=== PATIENT | female | born 1955 | race Caucasian/White ===

== ENCOUNTER 2019-03-13 10:28 | Outpatient (REF) | payer BC, SELFPAY ==
[2019-03-13 21:46] LABS: Calculated LDL 118 mg/dL; Cholesterol 188 mg/dL (50-200); HDL Cholesterol 62 mg/dL (40-60); Triglyceride 40 mg/dL (30-150)
[2019-03-13 22:07] LABS: TSH 3.94 uIU/mL (0.36-3.74)
== END 2019-03-13 10:48 ==
LOC: NCHCN 10:28
PROVIDERS: PCP Nurse Practitioner Family; Visit Provider Nurse Practitioner Family
DX: E03.9 Hypothyroidism, unspecified (principal); Z13.220 Encounter for screening for lipoid disorders
CPT/HCPCS: 80061; 83721; 84443

== ENCOUNTER 2020-01-15 20:38 | Outpatient (REF) | payer BC, SELFPAY ==
[2020-01-15 20:44] LABS: ALT 25 U/L (14-59); AST 20 U/L (15-37); Albumin 3.8 g/dL (3.4-5.0); Alkaline Phosphatase 62 U/L (46-116); BUN 13 mg/dL (7-18); Bilirubin, Total 0.4 mg/dL (0.2-1.0); CREATININE 0.67 mg/dL (0.55-1.02); Chloride 104 mmol/L (98-107); Glucose 94 mg/dL (74-106); Potassium 3.8 mmol/L (3.5-5.1); Sodium 137 mmol/L (136-145); TSH (W/Ref FT4) 6.36 uIU/mL (0.36-3.74); Total Protein 7.4 g/dL (6.4-8.2)
[2020-01-15 21:08] LABS: FREE T4 1.01 ng/dL (0.76-1.46)
[2020-01-15 21:33] LABS: Abs Immature Grans 0.02 k/cumm (0.0-0.09); Absolute Basophil Count 0.02 k/cumm (0.0-0.2); Absolute Eosinophil Count 0.46 k/cumm (0.0-0.7); Absolute Lymphocyte Count 2.48 k/cumm (1.2-3.4); Absolute Monocyte Count 0.75 k/cumm (0.11-0.7); Basophils % 0.3; Eosinophils % 7.6; HCT 34.4 % (36.0-46.0); HGB 11.4 g/dL (12.0-15.5); Immature Grans % 0.3 %; Lymphocytes % 41.1; Mean Corp. HGB Concentration 33.1 g/dL (32.0-36.0); Mean Corpuscular Hemoglobin 29.4 pg (27.0-33.0); Mean Corpuscular Volume 88.7 fL (80-95); Mean Platelet Volume 10.2 fL (8.0-11.0); Monocytes % 12.4; Neutrophils % 38.3; Platelet Count 285 x1000/uL (130-400); RBC 3.88 m/cumm (4.00-5.20); RBC Distribution Width 12.8 % (11.7-14.6); White Blood Cell Count 6.03 k/cumm (4.4-10.8)
== END 2020-01-15 20:58 ==
LOC: NCHCN 20:38
PROVIDERS: PCP Nurse Practitioner Family; Visit Provider Physician Assistant
DX: E03.9 Hypothyroidism, unspecified (principal); L30.9 Dermatitis, unspecified
CPT/HCPCS: 80053; 84439; 84443; 85025

== ENCOUNTER → 2020-08-27 18:36 | Outpatient (REF) | payer BC, SELFPAY | LOC: NCHCN 18:36 | PROVIDERS: PCP Nurse Practitioner Family; Visit Provider Physician Assistant | DX: R30.0 Dysuria (principal); N39.0 Urinary tract infection, site not specified | CPT/HCPCS: 87086; 87480; 87510; 87660 ==

== ENCOUNTER 2021-08-25 10:59 | Outpatient (REF) | payer BC, SELFPAY ==
[2021-08-25 20:42] LABS: Anion Gap 8.5 mmol/L (3-11); BUN 15 mg/dL (7-18); CO2 28.5 mmol/L (21.0-32.0); CREATININE 0.5 mg/dL (0.55-1.02); Calcium 9.1 mg/dL (8.5-10.1); Chloride 106 mmol/L (98-107); Glucose 98 mg/dL (74-106); Potassium 4.1 mmol/L (3.5-5.1); Sodium 143 mmol/L (136-145); TSH (W/Ref FT4) 0.12 uIU/mL (0.36-3.74)
[2021-08-25 21:00] LABS: FREE T4 1.22 ng/dL (0.76-1.46)
== END 2021-08-25 11:00 | disposition home or self-care (01) ==
LOC: NCHCN 10:59
PROVIDERS: PCP Nurse Practitioner Family; Visit Provider Nurse Practitioner Family
DX: I10 Essential (primary) hypertension (principal); E03.9 Hypothyroidism, unspecified
CPT/HCPCS: 80048; 84439; 84443

== ENCOUNTER 2021-11-23 15:15 | Outpatient (REF) | payer BC, SELFPAY ==
[2021-11-25 13:17] LABS: COVID-19 RT-PCR UVMMC Result Negative (Negative)
== END 2021-11-23 15:16 | disposition home or self-care (01) ==
LOC: NCHCN 15:15
PROVIDERS: PCP Nurse Practitioner Family; Visit Provider Nurse Practitioner Family
DX: Z20.822 Contact with and (suspected) exposure to COVID-19 (principal)
CPT/HCPCS: U0003

== ENCOUNTER 2022-06-16 16:26 | Outpatient (REF) | payer BC, SELFPAY ==
[2022-06-16 19:54] LABS: TSH 2.58 uIU/mL (0.36-3.74)
== END 2022-06-16 16:27 | disposition home or self-care (01) ==
LOC: NCHCN 16:26
PROVIDERS: PCP Nurse Practitioner Family; Visit Provider Nurse Practitioner Family
DX: E03.9 Hypothyroidism, unspecified (principal)
CPT/HCPCS: 84443

== ENCOUNTER 2022-12-01 16:10 | Outpatient (REF) | payer MEDICARE, OTHER, SELFPAY ==
[2022-12-01 20:02] LABS: ALT 24 U/L (14-59); AST 22 U/L (15-37); Albumin 3.7 g/dL (3.4-5.0); Alkaline Phosphatase 62 U/L (46-116); Anion Gap 5.1 mmol/L (3-11); Bilirubin, Total 0.2 mg/dL (0.2-1.0); CO2 29.9 mmol/L (21.0-32.0); CREATININE 0.7 mg/dL (0.55-1.02); Calcium 9.4 mg/dL (8.5-10.1); Calculated LDL 105 mg/dL (<100); Chloride 104 mmol/L (98-107); Cholesterol 179 mg/dL (<200); Estimated GFR 95.32 (mL/min/1.73m2); Glucose 106 mg/dL (74-106); HDL Cholesterol 58 mg/dL (40-60); Potassium 4.5 mmol/L (3.5-5.1); Sodium 139 mmol/L (136-145); Total Protein 7.7 g/dL (6.4-8.2); Triglyceride 82 mg/dL (<150)
[2022-12-01 20:08] LABS: BUN 20 mg/dL (7-18)
== END 2022-12-01 16:11 | disposition home or self-care (01) ==
LOC: NCHCN 16:10
PROVIDERS: PCP Nurse Practitioner Family; Visit Provider Nurse Practitioner Family
DX: I10 Essential (primary) hypertension (principal)
CPT/HCPCS: 80053; 80061

== ENCOUNTER 2023-05-30 19:21 | Outpatient (REF) | payer MEDICARE, OTHER, SELFPAY | END 2023-05-30 19:22 | disposition home or self-care (01) | LOC: NCHCN 19:21 | PROVIDERS: PCP Nurse Practitioner Family; Visit Provider Nurse Practitioner Family | DX: E03.9 Hypothyroidism, unspecified (principal); R30.0 Dysuria | CPT/HCPCS: 87077; 84443; 87086; 87186 ==

== ENCOUNTER 2023-12-05 19:47 | Outpatient (REF) | payer MEDICARE, OTHER, SELFPAY ==
[2023-12-05 21:44] LABS: Anion Gap 9.2 mmol/L (3-11); BUN 17 mg/dL (7-18); CO2 25.8 mmol/L (21.0-32.0); CREATININE 0.7 mg/dL (0.55-1.02); Calcium 9.9 mg/dL (8.5-10.1); Chloride 106 mmol/L (98-107); Estimated GFR 94.73 (mL/min/1.73m2); Glucose 97 mg/dL (74-106); Potassium 3.9 mmol/L (3.5-5.1); Sodium 141 mmol/L (136-145); TSH (W/Ref FT4) 0.63 uIU/mL (0.36-3.74)
== END 2023-12-05 19:48 | disposition home or self-care (01) ==
LOC: NCHCN 19:47
PROVIDERS: PCP Nurse Practitioner Family; Visit Provider Nurse Practitioner Family
DX: I10 Essential (primary) hypertension (principal); E03.9 Hypothyroidism, unspecified
CPT/HCPCS: 80048; 84443

== ENCOUNTER 2024-05-27 17:12 | Outpatient (REF) | payer MEDICARE, OTHER, SELFPAY ==
--- NOTE | 2024-05-27 16:15 | PAPFT_PTH ---
PATIENT: Yashira Reynaga LOC: [facility]#:[id number] AGE/SX: 68/F ROOM: RE05/27/[address]: Christopher Tinoco : 1955 BED: DIS: 05/27/2024 SPEC #: [id number] RECD: 05/28/24 12:55 STATUS: RAMON REMegan #: [id number] HANSEL: 05/27/24 16:[address]: Christopher Tinoco DEPT: [facility] Cytology RECD BY: Alysia Cordero ENTERED: 05/28/24 12:55 SP TYPE: PAPFT OTHR DR: Rafaela Amaro Tissues: 1 - CX/ENDOCX FOR PAP SMEARS Procedures: PAP THIN PREP/[facility] Screening Comments: [id number] (UNSATISFACTORY FOR EVALUATION)
--- OUTSIDE RECORDS SUMMARY | 2024-05-27 17:14 | XMS_ITS | Continuity of Care Document ---
Author Organization [place] [facility] Address [address] [place] [address] Care Team Providers Care Blue Line Trimmer Name Role Phone CHARITY LEOS Primary Care Provider Assessment No assessment recorded. Plan of Treatment Reminders Order Date Submit Date Provider Last Modified By Organization Details Last Modified Time Details Appointments Acute 30 2023 04:00P M STEPHANIE FOLEY Not available Not available Not available Follow Up 2023 09:30A M CHARITY LEOS Not available Not available Not available Lab None recorded. Referral urogyneco logist referral - 68 yo woman has a very large stage III uterine prolapse, possibly with associate d cystocele . This enlarged when she had pneumonia and cough a few months ago. For the past month she has substanti al lower abdominal pain when she is standing and the prolapse is sagging more. She also has marked mucosal atrophy and irritatio n as expected. I took a Pap smear just because the tissue around the cervix is so irritated and somewhat friable. I could not palpate any adnexal abnormali ties and she had no adnexal tendernes s. We introduce d her to the options but she needs more informati on from you to make a decision. Last Pap smear I can see was 2017 and they have all been negative. She is . Prior cholecyst ectomy. Generally quite healthy. This summer she had a severe bout of celluliti s in the RLE took several months to completel y heal but that is now healed.I am having her use topical estrogen and emollient s to try to improve the health of the exposed mucosa somewhat pending her visit with you.Adriana e evaluate and manage as indicated 2023 024 [email or web address] [facility] Project Development Coordinator, [address], [place], [address], 05/27/2024 16:55:19 Procedures None recorded. Surgeries None recorded. Imaging None recorded. Medication Orders Premarin 0.625 mg/gram vaginal cream [address] [employer] [id number], [address], [place], [address], 05/27/2024 16:55:24 Patient TargetsNo targets recorded. Patient InstructionsNo instructions recorded. Reason for Referral I debrided extensive /ma cerated skin over R post calf resulting from cellulitis. Now daily dressing with medihoney and telfa under gauze. She made need some more scrubbing/debridement by Monday - and manage wound care please. She worsened on oral Abx last few days, is getting a few more days of IV abx. If necrotic areas become deeper I will refer for surgical debridement but I have no suspicion for a compartment syndrome at this time. Norman Wagoner MD Referring Physician: Stephanie Foley, Internal Medicine, Encounter Date: 04/24/2024 Fermin Atwood - See my email to prashant terry Referring Physician: Stephanie Foley, Internal Medicine, Encounter Date: 04/29/2024 Urogynecologist Referral for Third degree uterine prolapse 68 yo woman has a very large stage III uterine prolapse, possibly with associated cystocele. This enlarged when she had pneumonia and cough a few months ago. For the past month she has substantial lower abdominal pain when she is standing and the prolapse is sagging more. She also has marked mucosal atrophy and irritation as expected. I took a Pap smear just because the tissue around the cervix is so irritated and somewhat friable. I could not palpate any adnexal abnormalities and she had no adnexal tenderness. We introduced her to the options but she needs more information from you to make a decision.Last Pap smear I can see was 2016 and they have all been negative. She is . Prior cholecystectomy. Generally quite healthy. This summer she had a severe bout of cellulitis in the RLE took several months to completely heal but that is now healed.I am having her use topical estrogen and emollients to try to improve the health of the exposed mucosa somewhat pending her visit with you.Please evaluate and manage as indicated Referring Physician: Stephanie Foley, Internal Medicine, Encounter Date: 05/27/2024 Results Created Date Observation Date Name Description Value Unit Range Abnormal Flag Note LastModifiedBy Organization Detail LastModifiedTime 05/06/20 24 04/22/2021 imagi ng/di agnos tic resul t No observ ation record ed. [email or web address] Not Available 05/06 20:08:34 05/09/20 24 05/09/2024 xr chest 1 view PROCED URE INFORM ATION: Exam: XR Chest Exam date and time: 11:02 AM Age: 68 years old Clinic al indica tion: Cough TECHNI QUE: Imagin g protoc ol: Radiol ogic exam of the chest. Views: 1 view. COMPAR TIFFANIE: No releva nt prior studie s availa ble. FINDIN GS: Lungs: No consol idatio n. Pleura l spaces : No sizabl e pleura l effusi on or pneumo thorax . Heart/ Medias tinum: No cardio megaly . Bones/ joints : Unrema rkable . IMPRES THOM: No acute intrat horaci c dasha gs. Report signed by: Rhonda Leonardo On 2023 11:14: 23 [facility] [address], [place], [address], 05/09/2024 16:56:28 05/09/2005/09/2024 CT abdom en and pelvi s w/ contr ast no po ABNORM AL FINDIN G PROCED URE INFORM ATION: Exam: CT Abdome n And Pelvis With Contra st Exam date and time: 11:47 AM Age: 68 years old Clinic al indica tion: Lower abd pain, fever, vomiti ng TECHNI QUE: Imagin g protoc ol: Comput ed tomogr aphy of the abdome n and pelvis with contra st. Radiat ion optimi zation : All CT scans at this facili ty use at least one of these dose optimi zation techni ques: automa phani exposu re contro l; mA and/or kV adjust ment per patien t size (inclu dwayne target ed exams where dose is matche d to clinic al indica tion); or iterat tamika recons tructi on. Contra st materi al: OMNIPA QUE; Contra st volume : 90 ml; Contra st route: INTRAV ENOUS (IV); COMPAR TIFFANIE: CR XR CHEST 1 VW 024 11:02 AM FINDIN GS: Lungs: Patchy tree-i n-bud opacit ies in the bilate ral lower lobes with bronch ial wall thicke heber. Liver: Focal fat deposi tion along the falcif orm ligame nt. Gallbl adder and biliar y ducts: Status post cholec ystect stephen. Pancre as: No ductal dilati on. Spleen : Unrema rkable . Adrena l glands : Unrema rkable . Kidney s and ureter s: Mild left greate r than right hydrou retero nephro sis, likely second jennifer to disten ded bladde r. Stomac h and bowel: Coloni c divert iculos is withou t divert iculit is. No obstru ction. Fluid within the colon, compat ible with diarrh ea. Append ix: No eviden ce of append icitis . Intrap eriton eal space: No free air. No signif icant fluid collec tion. Vascul ature: Unrema rkable . Lymph nodes: No enlarg ed lymph nodes. Urinar y bladde r: Disten ded urinar y bladde r. Reprod uctive : Unrema rkable as visual ized. Bones/ joints : Unrema rkable . No acute fractu re. Soft tissue s: Unrema rkable . IMPRES THOM: 1. Patchy tree-i n-bud opacit ies in the bilate ral lower lobes with bronch ial wall thicke heber, concer heber for bronch itis/i nfecti on. 2. No acute findin gs in the abdome n or pelvis . Report signed by: Rhonda Leonardo On 2023 12:25: [address] [place] [address], [place], [address], 05/09/2024 16:56:31 Result Notes None recorded. Problems Name Problem SNOMED Code Status Onset Date Resolution Date Notes Provider Name and Address Organization Details Recorded Time Cholecys tectomy Completed 200311/25/2003 Not Available [facility] 3 05:17:13 Acute sinusiti s 20606540 Completed 201404/19/[address], [facility] [id number] [place] [address] 4 16:03:25 Acute sinusiti s 38908783 Completed 201512/02/2015 Problem Code: J01.90; Problem Code Type: ICD-10; MD Thong [address], [facility] [id number] [place] [address] 4 16:03:25 Increase d frequenc y of urinatio n 003910327 Completed 201511/03/2015 Problem Code: R35.0; Problem Code Type: ICD-10; Not Available [facility] 3 05:17:14 Urinary tract infectio us disease 95923466 Completed 201506/09/2016 Problem Code: N39.0; Problem Code Type: ICD-10; Not Available [facility] 3 05:17:14 Acute sinusiti s 64412463 Completed 201601/04/2017 Problem Code: J01.90; Problem Code Type: ICD-10; MD Thong [address], [facility] [id number] [place] [address] 4 16:03:25 Hypothyr oidism 34936282 Active 2007 Vandana Elizondo [facility] 4 16:33:26 Irritabl e bowel syndrome 93152419 [facility] 16:33:44 Simple goiter 056397591 [facility] 4 16:35:54 Gastroes ophageal reflux disease without esophagi tis 352477447 Active 201312/14/22 EGD Perez, gastric polyps STEPHANIE FOLEY MD [address], [place] [phone] [place] [address] 4 16:14:55 Pain of left shoulder joint 70779325056 320157 Completed 201605/05/2017 Problem Code: M25.512; Problem Code Type: ICD-10; Not Available [facility] 3 05:17:15 Screenin g for malignan t neoplasm of colon Completed 201605/30/2023 Problem Code: Z12.11; Problem Code Type: ICD-10; Removal Reason: 3 neg STEPHANIE FOLEY MD [address], [address] 4 16:14:27 Basal cell carcinom a of face 050543611 Completed 201604/19/2024 STEPHANIE FOLEY MD [address], [address] 4 16:03:33 Breast lump 02840931 Completed 201605/30/2023 Problem Code: N63; Problem Code Type: ICD-10; Not Available [facility] 4 05:37:29 Acute upper respirat ory infectio n 96536855 Completed 201608/15/2017 07/04/20 17 - Comments only - Dheeraj Davila PA-C - Followin g typical progress ion. Given hoarse voice most likely viral etiology . Symptoma tic care follow-u p if not improvin g. Reviewed expected course. Vital signs normal. Normal exam. 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 Amoxicil lizzie. F/U if not improvin g. Problem Code: J01.00; Problem Code Type: ICD-10; Not Available [facility] 3 05:17:15 Periapic al abscess 047396587 Completed 201701/16/2018 12/27/19 18 - Comments only - Rafaela Amaro PERCUSSION TUNER - Seen today by Dr. Ortiz (Dental) and she drained the abscess, flushed it and gave a prescrip tion for Chlorhex adine. Is schedule d for a tooth extracti on on 01/10/18, was not able to do today (patient had time constrai nts). I spoke directly with Dr. Ortiz, Amoxicil lizzie will cover infectio n for abscess. Problem Code: K04.7; Problem Code Type: ICD-10; Not Available [facility] 3 05:17:15 Screenin g for malignan t neoplasm of breast Completed 201803/13/2019 EZIO Valdivia [facility] 4 16:35:38 Adult health examinat ion Completed 201803/17/2021 03/17/20 21 - Comments only - Charity Leos PERCUSSION TUNER - Annual exam, mammogra m ordered. PAP not due, Yashira will follow up with [employer] for her prolapse d uterus just hasn't made an appointm ent yet. She got the Shingrix at the pharmacy . Declines COVID vaccine today but is consider ing having that done. I encourag ed vaccinat ion. Continue regular exercise . Problem Code: Z00.00; Problem Code Type: ICD-10; EZIO Valdivia - [facility] 4 16:29:47 Eczema 86279030 Completed 201912/05/2023 Dermatit s CHARITY LEOS, [employer]PER[employer]OR [address], [place], [address] , [facility] 4 10:53:24 Pain in thoracic spine 052537540 Completed 201905/26/2020 05/24/20 20 - Comments only - Rocío Suarez PA - Prescrip tion for Flexeril at bedtime. Recommen ded ibuprofe n 600 mg 3 times a day with food. Recommen ded heating pad and muscle rub. Problem Code: M54.9; Problem Code Type: ICD-10; Not Available [facility] 3 05:17:16 Uterovag inal prolapse 65734196 Active 2020 [facility] 4 16:36:03 Osteoart hritis 304009627 Active 2020 [facility] 4 16:33:51 Essentia l hyperten thom 00334634 Active 2021 [facility] 4 16:32:04 Exposure to communic able disease Completed 202111/23/2021 Exposure to COVID-19 coronavi bennett [facility] 4 16:32:45 Disorder of nasal sinus 8267659 Completed 202205/30/2023 12/02/19 23 - Comments only - Charity Leos PERCUSSION TUNER - will try adding Fluticas one to her azelasti ne to see if helps with sx, no sign of infectio n on exam today. Push fluids. RTC INI or feeling worse Not Available [facility] 4 05:37:29 Adult health examinat ion Completed 201612/26/2017 Problem Code: Z00.00; Problem Code Type: ICD-10; [facility], [facility] 4 16:29:47 Dysuria 60075043 Completed 201504/19/[address], [place], [address] , [facility] 4 16:03:38 Diarrhea 39172245 Completed 201403/07/2017 Problem Code: R19.7; Problem Code Type: ICD-10; Not Available [facility] 3 05:17:29 Irritabl e bowel syndrome 82721449 Completed 201312/08/2016 Vandana earl, [facility] 4 16:33:44 Hyperlip idemia screenin g Completed 201812/22/2020 Problem Code: Z13.220; Problem Code Type: ICD-10; Not Available [facility] 3 05:17:31 Urinary tract infectio us disease 77320444 Completed 201912/22/2020 Problem Code: N39.0; Problem Code Type: ICD-10; Not Available [facility] 3 05:17:31 Goiter 0756462 Completed 200312/08/2016 Not Available [facility] 3 05:17:33 Gastroes ophageal reflux disease 081634846 Completed 201312/08/2016 Not Available [facility] 3 05:17:35 Chronic sinusiti s 06075662 Completed 201512/26/2017 Problem Code: J32.9; Problem Code Type: ICD-10; Not Available [facility] 3 05:17:35 Raynaud' s disease 518931295 Active 2022 Vandana earl, [facility] 4 16:34:00 Seasonal allergy 568503322 Active [address], [place], [address] , [facility] 4 10:53:35 Cellulit is of right lower limb 82944334901 395564 Active [address], [place], [address] , [facility] 4 14:17:39 Upper respirat ory infectio n 85483451 Active [address], [facility] [address] , [facility] 4 16:00:30 Communit y acquired pneumoni a 565319139 Active [address], [facility] [address] , [facility] 4 17:25:36 Third degree uterine prolapse 43975353 Active [address], [facility] [address] , [facility] 4 16:49:54 Problem Notes None recorded. Medical Equipment None Reported. Allergies Allergen ID Allergen Name Allergen Category Reaction Reaction Severity Criticality Documentation Date Start Date Code Code System Note Provider Name and Address Organization Details Recorded Time 35314 Zithromax medicatio n rash moderate Not available 06/30/20232011 38512 4 RxNorm Vandana Caro [facility] 4 16:37:51 56967 sulfadiaz ine medicatio n other moderate Not available 06/30/20232001 50861 RxNorm No react ion enter ed Vandana Caro [facility] 4 16:37:37 08112 Cipro medicatio n insomnia severe Not available 06/30/20232020 87725 3 RxNorm Vandana Caro null, [facility] 4 16:36:36 54057 codeine medicatio n other moderate Not available 11/27/20232003 2670 RxNorm INTOL N/V Vandana Birminghameri null, [facility] 4 16:37:17 Medications Name Sig Start Date Stop Date Status Note LastModified by Organization Details LastModified Time cyclobenzap rine 10 mg tablet Take 1 tab by mouth at bedtime as needed 08/27 completed Not Available Not Available Not Available nystatin 100,000 unit/mL oral suspension SUSP QID 01/02 completed Not Available Not Available Not Available cetirizine 10 mg tablet TAKE ONE TABLET BY MOUTH AT BEDTIME 2020 active Not Available Not Available Not Avai lable ibuprofen 800 mg tablet take one tablet every eight hours as needed 2013 active Not Available Not Available Not Avai lable ibuprofen 200 mg capsule Take 4 capsules twice a day by oral route for 5 days. 2023 active Not Available Not Available Not Avai lable Flonase 50 mcg/DOSE nasal inhaler 2 SPRAY daily 02/04 completed Not Available Not Available Not Available lisinopril 20 mg tablet Take 1 tablet by mouth once a day for blood pressure 11/07 completed Not Available Not Available Not Available ondansetron HCl 4 mg tablet TAKE ONE TABLET BY MOUTH THREE TIMES A DAY active Not Available Not Available No t Available Synthroid 100 mcg tablet 1 TAB daily 11/10 completed Not Available Not Available Not Available Prilosec 20 mg capsule,del ayed release 1 TAB QD 02/05 completed Not Available Not Available Not Available Pyridium 100 mg tablet take 1-2 tabs three times daily as needed 05/19 completed Not Available Not Available Not Available Pyridium 200 mg tablet 1 TAB TID 09/02 completed Not Available Not Available Not Available Zithromax 250 mg tablet 2 TABS NOW 02/19 completed Not Available Not Available Not Available diphenoxyla te-atropine 2.5 mg-0.025 mg tablet 1 tab tid prn diarrhea 12/05 completed Not Available Not Available Not Available penicillin V potassium 500 mg tablet Take 1 tablet by mouth three times a day 12/27 completed Not Available Not Available Not Available amlodipine 2.5 mg tablet TAKE ONE TABLET BY MOUTH EVERY DAY 05/16 completed Not Available Not Available Not Available levofloxaci n 250 mg tablet Take 1 tablet by mouth once a day 06/08 completed Not Available Not Available Not Available amlodipine 5 mg tablet TAKE ONE TABLET BY MOUTH EVERY DAY active Not Available Not Available No t Available ciprofloxac in 500 mg tablet Take 1 tab by mouth twice daily 12/22 completed Not Available Not Available Not Available omeprazole 40 mg capsule,del ayed release TAKE ONE CAPSULE BY MOUTH EVERY DAY 04/19 completed Not Available Not Available Not Available triamcinolo ne acetonide 0.1 % topical cream Apply to affected area twice daily 05/19 completed Not Available Not Available Not Available levothyroxi ne 75 mcg tablet TAKE ONE TABLET BY MOUTH EVERY DAY, EXCEPT ON MONDAY AND SUNDAYS TAKE 1/2 TABLET DAILY active Not Available Not Available No t Available Bactroban 2 % topical cream cream three times daily 05/09 completed Not Available Not Available Not Available levothyroxi ne 88 mcg tablet Take 1 tab by mouth daily 2014 active Not Available Not Available Not Avai lable amoxicillin 875 mg tablet Take 1 tablet by mouth twice a day 12/03 completed Not Available Not Available Not Available levothyroxi ne 50 mcg tablet Take 1 tablet by mouth once a day 03/17 completed Not Available Not Available Not Available cephalexin 500 mg capsule TAKE ONE CAPSULE BY MOUTH FOUR TIMES A DAY FOR 10 DAYS 04/19 completed Not Available Not Available Not Available pantoprazol e 40 mg tablet,papito yed release TAKE ONE TABLET BY MOUTH EVERY DAY active Not Available Not Available No t Available nitrofurant oin macrocrysta l 100 mg capsule Take 1 tab by mouth twice daily 12/05 completed Not Available Not Available Not Available lisinopril 10 mg tablet TAKE ONE TABLET BY MOUTH EVERY DAY active Not Available Not Available No t Available Keflex 500 mg tablet 1 cap four times daily 04/25 completed Not Available Not Available Not Available ciprofloxac in 100 mg tablet Take 1 tab by mouth twice daily 09/01 completed Not Available Not Available Not Available azelastine 137 mcg (0.1 %) nasal spray [place] 1-2 spray into both nostrils once a day as needed 2021 active Not Available Not Available Not Avai lable ibuprofen 600 mg tablet Take 1 tablet by mouth three times a day as needed 12/04 completed Not Available Not Available Not Available albuterol sulfate HFA 90 mcg/actuati on aerosol inhaler INHALE TWO PUFFS BY MOUTH EVERY 4 TO 6 HOURS NEEDED 2023 active Not Available Not Available Not Avai lable Cipro 250 mg tablet 1 TAB BID 09/08 completed Not Available Not Available Not Available cefdinir 300 mg capsule TAKE ONE CAPSULE BY MOUTH EVERY 12 HOURS 05/06 completed Not Available Not Available Not Available fluticasone propionate 50 mcg/actuati on nasal spray,suspe nsion INSTILL 2 SPRAYS INTO BOTH NOSTRILS ONCE DAILY 12/04 completed Not Available Not Available Not Available doxycycline hyclate 100 mg tablet TAKE ONE TABLET BY MOUTH TWICE A DAY FOR 10 DAYS 04/19 completed Not Available Not Available Not Available amoxicillin 875 mg-potassiu m clavulanate 125 mg tablet TAKE ONE TABLET BY MOUTH EVERY 12 HOURS FOR 10 DAYS 05/27 completed Not Available Not Available Not Available Multivitami n With Minerals tablet 1 tablet once a day 2018 active Not Available Not Available Not Avai lable Premarin 0.625 mg/gram vaginal cream Apply 1 g to exposed mucosal surface daily for 2 weeks and then 2 days/week . 2023 active Not Available Not Available Not Avai lable nitrofurant oin monohydrate /macrocryst als 100 mg capsule Take 1 capsule by mouth twice a day 06/04 completed Not Available Not Available Not Available multivitami n 1 tab a day 2018 active Not Available Not Available Not Avai lable omeprazole 20 mg tablet,papito yed release Take 1 by mouth BID 2013 active Not Available Not Available Not Avai lable Culturelle Digestive [facility] 10 billion cell-200 mg sprinkle capsule Take 1capsule by mouth daily 2010 active Not Available Not Available Not Avai lable Vitals Date Recorded Body height Body mass index (BMI) Body weight Body temperature Respiratory rate Oxygen saturation Oxygen saturation in Arterial blood by Pulse oximetry Heart rate Systolic blood pressure Diastolic blood pressure Provider Name and Address Organization Details Last Updated DateTime 166.37 cm 22.8 kg/m2 91250.4 4 g 96.8 [degF] 18 /min 99 % 99 % 60 /min 110 mm[Hg] 60 mm[Hg] BERE REDDYLORETTA WALSH [facility] 15:55:44 Social History Question Answer Notes LastModified by Organizat ion Details LastModified Time Tobacco Smoking Status Never Smoker BEREJUSTIN MEZA LPN null, [facility] 12/05/2023 10:36:31 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 05/27/2024 Information not available 05/27/2024 Has Tobacco Cessation Counseling Been Provided? No Information not available 05/16/2024 Do You Or Have You Ever Used Any Other Forms Of Tobacco Or Nicotine? No Information not available 12/05/2023 Sex: Female Functional Status None recorded. Mental Status None recorded. Family History Relationship Description Onset Age of this Age Resolved Age Notes LastModified by Organization Details LastModified Time Mother Family history of Hypertension [email or web address] Not available 05/2023 03:54:45 Mother Family history of hyperthyroid ism [email or web address] Not available 2022 03:54:46 Notes:*Problem: No known fam darline history of CAD, CVA, breast cancer or colon cancer Medical History No medical history recorded. Gynecological HistoryNo gynecological history recorded. Obstetrics History GPAL:G 0 P 0 0 0 0 Immunizations Vaccine Type Date Status Provider Name and Address Organization Details Recorded Time Tdap 05/27/2024 completed MD Thong [address], [place], [address], [facility] 05/27/2024 16:48:00 MMR 03/13/2019 completed Not Available [facility] 06:04:52 Tdap 05/02/2014 completed Not Available [facility] 06:04:52 Influenza, split virus, trivalent, preservative 06/13/2016 completed Not Available [facility] 06/30/2023 06:04:52 Influenza, split virus, quadrivalent, PF 06/24/2018 completed Not Available [facility] 06/30/2023 06:04:52 Influenza, MDCK, trivalent, PF 06/03/2015 completed Not Available [facility] 06/30/2023 06:04:52 influenza, unspecified formulation 06/03/2020 completed Not Available [facility] 06/30/2023 06:04:52 influenza, unspecified formulation 06/20/2019 completed Not Available [facility] 06/30/2023 06:04:53 influenza, unspecified formulation 07/11/2023 completed Duane Martinez RN [facility], [facility] 12/04/2023 14:24:56 Past Encounters Encounter ID Performer Location Encounter Start Date Encounter Closed Date Diagnosis/Indication Diagnosis SNOMED-CT Code Diagnosis ICD10 Code [id number] STEPHANIE FOLEY MD [address] [address] 04/29/2024 14:46:21 04/29/2024 15:27:54 Cellulitis of right lower limb [id number] L03.342 [id number] STEPHANIE FOLEY MD [address] [address] 05/06/2024 14:47:54 05/06/2024 16:40:25 Cellulitis of right lower limb [id number] L03.115 Upper resp iratory infection 73547076 J06.9 [id number] ROCÍO SUAREZ PA-C [address] [address] 05/16/2024 15:49:32 05/16/2024 16:53:23 Cough 94674122 R05.9 [id number] STEPHANIE FOLEY MD [address] [address] 05/20/2024 15:48:58 05/20/2024 17:04:49 Cellulitis of right lower limb 4573071461 4648638 L03.115 Community acquired pneumonia 126092044 J18.9 [id number] STEPHANIE FOLEY MD [facility] [address] [place] [address] 05/27/2024 15:50:06 05/27/2024 16:50:46 Active or passive immunization 437677413 Z23 Third degr ee uterine prolapse 73473395 N81.3 Health Concerns Section Related Observation LastModified by Organization Detai ls LastModified Time None Recorded Concern Status LastModified by Organization Details LastModified Time None Recorded Payers Encounter Date Sequence Insurance Name Policy Number Policy Luna Covered Member ID Luna Member ID Guarantor Name 05/27/2024 1 [place] [employer] Yashira Reynaga [id number] Yashira Reynaga 05/27/2024 2 [facility] () Yashira Reynaga [id number] Yashira Reynaga Notes Date Note Type Note Provider Name and Address Organization Details Recorded Time 05/27/2024 text/html HPI Notes: 68-year-old woman here because of increased lower abdominal pain for several weeks duration, associated with increased size of a longstanding uterine prolapse. 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 It had not bothered her much until more recently. She had pneumonia a few months ago and during that time she had increased coughing which led to a marked increase in the size of the prolapsed area. Surprisingly she has never noticed mucosal irritation, but in the past month she has noted bilateral lower abdominal pain whenever she stands and the prolapse sags more. She also has to manually move the prolapse aside in order to void. She has not had dysuria or hematuria. She had prolonged antibiotics for severe lower extremity cellulitis over the past 2 months, has now been off them for about a month. She had diarrhea while on Augmentin but that has cleared up completely. She was not having this lower abdominal pain back when she was having the diarrhea. She has no nausea or epigastric pain, is able to eat normally. No recent sexual activity. MD [address], [place], [address], [facility]. 05/27/2024 16:55:31 OBGyn Episode No OBEpisode recorded.
--- OUTSIDE RECORDS SUMMARY | 2024-05-27 17:14 | XMS_ITS | Continuity of Care Document ---
Author Organization [facility] Address [address] [place] [address] Care Team Providers Care Semiconductor Packages Sealer Name Role Phone CHARITY LEOS Primary Care Provider [phone] Assessment No assessment recorded. Plan of Treatment Reminders Order Date Submit Date Provider Last Modified By Organization Details Last Modified Time Details Appointments Acute 30 2023 04:00P M STEPHANIE FOLEY Not available Not available Not available Follow Up 2023 09:30A M CHARITY LEOS Not available Not available Not available Lab None recorded . Referral None recorded . Procedures None recorded . Surgeries None recorded . Imaging None recorded . Medication Orders None recorded . Patient TargetsNo targets recorded. Patient InstructionsNo instructions [...] decision.Last Pap smear I can see was 2017 [...] record ed. [email or web address] Not Available 05/06 20:08:34 05/09/2005/09/2024 xr chest 1 view PROCED URE INFORM ATION: Exam: XR Chest Exam date and time: 024 11:02 AM Age: 68 years old Clinic [...] by: Rhonda Leonardo On 2023 11:14: 23 [facility] [address], [place], [address], 05/09/2024 16:56:28 05/09/20 24 05/09/2024 CT abdom en and pelvi s w/ [...] by: Rhonda Leonardo On 2023 12:25: 09 INTERFACE [facility] [address], [place], [address], 05/09/2024 16:56:31 Result Notes None recorded. Problems Name Problem SNOMED Code Status Onset Date Resolution Date Notes Provider Name and Address Organization Details Recorded Time Cholecys tectomy Completed 200311/25/2003 Not Available On license of [facility] 3 05:17:13 Acute sinusiti s 77847653 Completed 201404/19/[address], [place], [address] , [facility] 4 16:03:25 Acute sinusiti s 58363571 Completed 201512/02/2015 Problem Code: J01.90; Problem Code Type: ICD-10; MD [address]ong [address], [place], [address] , [facility] 4 16:03:25 Increase d frequenc y of urinatio n 346167674 Completed 201511/03/2015 Problem Code: R35.0; Problem Code Type: ICD-10; Not Available [facility] 3 05:17:14 Urinary tract infectio us disease 65722267 Completed 201506/09/2016 Problem Code: N39.0; Problem Code Type: ICD-10; Not Available On license of [facility] 3 05:17:14 Acute sinusiti s 99728440 Completed 201601/04/2017 Problem Code: J01.90; Problem Code Type: ICD-10; MD Thong [address], [place], [address] , [facility] 4 16:03:25 Hypothyr oidism 55696782 Active 2007 [facility] 4 16:33:26 Irritabl e bowel syndrome 47909156 Active nl colonosc opy [facility] 4 16:33:44 Simple goiter 555044500 Active 2003 [facility] 4 16:35:54 Gastroes ophageal reflux disease without esophagi tis 105282856 Active 201312/14/22 EGD Perez, gastric polyps MD Thong [address], [facility] [address] , [facility] 4 16:14:55 Pain of left shoulder joint 90824920945 852028 Completed 201605/05/2017 Problem Code: M25.512; Problem Code Type: ICD-10; Not Available [facility] 3 05:17:15 Screenin g for malignan t neoplasm of colon Completed 201605/30/2023 Problem Code: Z12.11; Problem Code Type: ICD-10; Removal Reason: 3 neg MD [address], [place], [address] , [facility] 4 16:14:27 Basal cell carcinom a of face 201419417 Completed 201604/19/[address], [place], [address] , [facility] 4 16:03:33 Breast lump 78164994 Completed 201605/30/2023 Problem Code: N63; Problem Code Type: ICD-10; Not Available [facility] 4 05:37:29 Acute upper respirat ory infectio n 61005491 Completed 201608/15/2017 07/04/20 17 - Comments only - Dheeraj Davila PA-C - Followin g typical progress ion. Given hoarse voice most likely viral etiology . Symptoma tic care follow-u p if not improvin g. Reviewed expected course. Vital signs normal. Normal exam. 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 Amoxicil lizzie. F/U if not imprologan g. Problem Code: J01.00; Problem Code Type: ICD-10; Not Available On license of [facility] 3 05:17:15 Periapic al abscess 573417935 Completed 201701/16/2018 12/27/19 18 - Comments only - Rafaela Amaro FASHION ARTIST - Seen today by Dr. Ortiz (Dental) [...] K04.7; Problem Code Type: ICD-10; Not Available On license of [facility] 3 05:17:15 Screenin g for malignan t neoplasm of breast Completed 201803/13/2019 Vandana earl [facility] 4 16:35:38 Adult health examinat ion Completed 201803/17/2021 03/17/20 21 - Comments only - Charity Leos FASHION ARTIST - Annual exam, mammogra m ordered. 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 She got the Shingrix at the pharmacy . Declines COVID vaccine today but is consider ing having that done. I encourag ed vaccinat ion. Continue regular exercise . Problem Code: Z00.00; Problem Code Type: ICD-10; [facility] 4 16:29:47 Eczema 01800072 Completed 201912/05/2023 Dermatit s CHARITY LEOS, CL[employer] [address], [place], [address] , [facility] 4 10:53:24 Pain in thoracic spine 751966071 Completed 201905/26/2020 05/24/20 20 - Comments only - Rocío PAEZ - Prescrip tion for Flexeril at bedtime. Recommen ded ibuprofe n 600 mg 3 times a day with food. Recommen ded heating pad and muscle rub. Problem Code: M54.9; Problem Code Type: ICD-10; Not Available [facility] 3 05:17:16 Uterovag inal prolapse 86375684 Active 2020 [facility] 4 16:36:03 Osteoart hritis 497442133 Active 2020 [facility] 4 16:33:51 Essentia l hyperten thom 70352737 Active 2021 [facility] 4 16:32:04 Exposure to communic able disease Completed 202111/23/2021 Exposure to COVID-19 coronavi bennett [facility] 4 16:32:45 Disorder of nasal sinus 1062577 Completed 202205/30/2023 12/02/19 23 - Comments only - Charity Leos FASHION ARTIST - will try adding Fluticas one to her azelasti ne to see if helps with sx, no sign of infectio n on exam today. Push fluids. RTC INI or feeling worse Not Available On license of [facility] 4 05:37:29 Adult health examinat ion Completed 201612/26/2017 Problem Code: Z00.00; Problem Code Type: ICD-10; Vandana earl, [facility] 4 16:29:47 Dysuria 82589380 Completed 201504/19/2024 STEPHANIE FOLEY MD [address], [place], [address] [facility] 4 16:03:38 Diarrhea 44599957 Completed 201403/07/2017 Problem Code: R19.7; Problem Code Type: ICD-10; Not Available On license of [facility] 3 05:17:29 Irritabl e bowel syndrome 15842155 Completed 201312/08/2016 Vandana earl, [facility] 4 16:33:44 Hyperlip idemia screenin g Completed 201812/22/2020 Problem Code: Z13.220; Problem Code Type: ICD-10; Not Available On license of [facility] 3 05:17:31 Urinary tract infectio us disease 35551368 Completed 201912/22/2020 Problem Code: N39.0; Problem Code Type: ICD-10; Not Available [facility] 3 05:17:31 Goiter 2977959 Completed 200312/08/2016 Not Available [facility] 3 05:17:33 Gastroes ophageal reflux disease 267768832 Completed 201312/08/2016 Not Available [facility] 3 05:17:35 Chronic sinusiti s 73015703 Completed 201512/26/2017 Problem Code: J32.9; Problem Code Type: ICD-10; Not Available [facility] 3 05:17:35 Raynaud' s disease 502556573 Active 2022 Vandana earl, [facility] 4 16:34:00 Seasonal allergy 935981588 Active 2023 FABIANO ESPINOZA [address], [place], [place], [address] [place] [address] , [facility] 4 10:53:35 Cellulit is of right lower limb 06791693084 150875 Active [address], [place] [address] , [facility] 4 14:17:39 Upper respirat ory infectio n 93649311 Active [address], [place] [address] , [facility] 4 16:00:30 Communit y acquired pneumoni a 589391242 Active [address], [place] [address] , [facility] 4 17:25:36 Third degree uterine prolapse 11065741 Active [address], [place] [address] , [facility] 16:49:54 Problem Notes None recorded. Medical Equipment None Reported. Allergies Allergen ID Allergen Name Allergen Category Reaction Reaction Severity Criticality Documentation Date Start Date Code Code System Note Provider Name and Address Organization Details Recorded Time 11769 Zithromax medicatio n rash moderate Not available 06/30/202320117 4 [facility] 4 16:37:51 57607 sulfadiaz ine medicatio n other moderate Not available 06/30/20232001 40146 RxNorm No react ion enter ed Vandana earl, [facility] 4 16:37:37 92628 Cipro medicatio n insomnia severe Not available 06/30/2023202056 3 RxNorm Vandana Elizondo [facility] 4 16:36:36 51572 codeine medicatio n other moderate Not available 11/27/20232003 2670 RxNorm INTOL N/V Vandana Elizondo [facility] 4 16:37:17 Medications Name Sig Start Date [...] azelastine 137 mcg (0.1 %) nasal spray Cascade 1-2 spray into both nostrils once a [...] Not Available Not Available Not Avai lable [facility] 10 billion cell-200 mg sprinkle capsule Take 1capsule by mouth daily 2010 active Not Available Not Available Not Avai lable Vitals Date Recorded Body height Oxygen saturation Oxygen saturation in Arterial blood by Pulse oximetry Heart rate Body mass index (BMI) Body weight Body temperature Systolic blood pressure Diastolic blood pressure Provider Name and Address Organization Details Last Updated DateTime 4 166.37 cm 96 % 96 % 86 /min 23.3 kg/m2 13493.1 2 g 98.3 [degF] 122 mm[Hg] 60 mm[Hg] Duane Martinez RN [facility] 16:00:29 Social History Question Answer Notes LastModified by Organizat ion Details LastModified Time Tobacco Smoking Status Never Smoker BERE MEZA LPN null, [facility] 12/05/2023 10:36:31 What Is Your Occupation? Retired [...] LastModified Time Mother Family history of Hypertension paulino. Not available 05/2023 03:54:45 Mother Family history of hyperthyroid ism paulino. Not available 2022 03:54:46 Notes:*Problem: No known fam darline history of CAD, CVA, breast cancer or colon cancer Medical History No medical history recorded. Gynecological HistoryNo gynecological history recorded. Obstetrics History GPAL:G 0 P 0 0 0 0 Immunizations Vaccine Type Date Status Provider Name and Address Organization Details Recorded Time Tdap 05/27/2024 completed MD Thong [address], [place], [address], [facility] 05/27/2024 16:48:00 MMR 03/13/2019 completed Not Available On license of [facility] 06:04:52 Tdap 05/02/2014 completed Not Available On license of [facility] 06:04:52 Influenza, split virus, trivalent, preservative 06/13/2016 completed Not Available [facility] 06/30/2023 06:04:52 Influenza, split virus, quadrivalent, PF 06/24/2018 completed Not Available On license of [facility] 06/30/2023 06:04:52 Influenza, MDCK, trivalent, PF 06/03/2015 completed Not Available On license of [facility] 06/30/2023 06:04:52 influenza, unspecified formulation 06/03/2020 completed Not Available On license of [facility] 06/30/2023 06:04:52 influenza, unspecified formulation 06/20/2019 completed Not Available On license of [facility] 06/30/2023 06:04:53 influenza, unspecified formulation 07/11/2023 completed Duane Martinez RN [facility], [facility] 12/04/2023 14:24:56 Past Encounters Encounter ID Performer Location Encounter Start Date Encounter Closed Date Diagnosis/Indication Diagnosis SNOMED-CT Code Diagnosis ICD10 Code [id number] STEPHANIE FOLEY MD [address] [address] 04/19/2024 15:56:50 04/19/2024 16:38:44 Cellulitis of right lower limb 4810924986 3973616 L03.666 [id number] STEPHANIE FOLEY MD [address] [address] 04/24/2024 13:18:07 04/24/2024 14:35:47 Cellulitis of right lower limb 6692191316 9994938 L03.911 [id number] STEPHANIE FOLEY MD [address] [address] 04/29/2024 14:46:21 04/29/2024 15:27:54 Cellulitis of right lower limb 0698609660 8590628 L03.841 [id number] STEPHANIE FOLEY MD [address] [address] 05/06/2024 14:47:54 05/06/2024 16:40:25 Cellulitis of right lower limb 1207605002 6574680 L03.115 Upper resp iratory infection 74527558 J06.9 [id number] ROCÍO SUAREZ PA-C [address] [address] 05/16/2024 15:49:32 05/16/2024 16:53:23 Cough 21672018 R05.9 [id number] STEPHANIE FOLEY MD [address] [address] 05/20/2024 15:48:58 05/20/2024 17:04:49 Cellulitis of right lower limb 0113624012 9134504 L03.115 Community acquired pneumonia 778172420 J18.9 Health Concerns Section Related Observation LastModified by Organization Detai ls LastModified Time None Recorded Concern Status LastModified by Organization Details LastModified Time None Recorded Payers Encounter Date Sequence Insurance Name Policy Number Policy Luna Covered Member ID Luna Member ID Guarantor Name 05/20/2024 1 [place] [employer] Yashira Reynaga [id number] Yashira Reynaga 05/20/2024 2 [facility] () Yashira Reynaga [id number] Yashira Reynaga Notes Date Note Type Note Provider Name and Address Organization Details Recorded Time 05/20/2024 text/html HPI Notes: Follow-up cellulitis The widespread areas of shallow ulceration finally healed up completely last week. Pain over the right calf also improved. No new areas of erythema or tenderness. Unfortunately last week her respiratory symptoms worsen, she was seen 5 days ago and given Augmentin for presumptive pneumonia. She does not have fever, chills or severe dyspnea but she does have wet cough, fatigue, mild dyspnea. She has been able to eat and drink normally, no vomiting . Her C. difficile studies were negative but she continues to have some stool frequency and urgency. However the stools are starting to form up now. No blood. No severe abdominal pain. MD Thong [address], [place], [address], [facility]. 05/20/2024 17:27:20 OBGyn Episode No OBEpisode recorded.
--- OUTSIDE RECORDS SUMMARY | 2024-05-27 17:15 | XMS_ITS | Encounter Summary ---
Author Organization [facility] Address [address] [place] [address] Care Team Providers Care Binder Sorter Name Role Phone Unavailable Primary Care Provider Unavailabl e Encounter Details Date Type Department Care Team (Late st Contact Info) Description 07/08/2011 Results Only [facility] [phone] Refugio Avina PA-C [address] [place] [address] Social History Tobacco Use Types Packs/Day Years Used Date Smoking Tobacco: Never Assessed Sex and Gender Information Value Date Recorded Sex Assigned at Not on file Gender Identity Not on file Sexual Orientation Not on file documented as of this encounter Plan of Treatment Not on file documented as of this encounter Procedures Procedure Name Priority Date/Time Associated Diagnosis Comments PAP TEST- RESULT ONLY Routine 07/08/2011 0:00 EST documented in this encounter Results * PAP TEST- RESULT ONLY (07/08/2011 0:00 EST) Pathology Report: CYTOPATHOLOGY REPORT Reports generated via electronic interface contain original data; however they are lacking the format of the original report. Caution should be taken when reading/interpreti ng unformatted reports. Name: ? KALINA ROJAS ? Accession #: ? [id number] : ? 1955 (Age: 55) ??F ?Collect Date: ? 07/08/2011 Location: ? [facility] ? Receive Date: ? 07/12/2011 Provider: ?REFUGIO PAEZ Copy to: ? Specimen/Source: ?Pap Test, Cervix, ThinPrep Imaging System with manual evaluation Last Menstrual Period: ? SPECIMEN ADEQUACY ? Satisfactory for Evaluation - transformation zone component absent GENERAL CATEGORIZATION ? Negative for Intraepithelial Lesion or Malignancy ? Document reviewed and electronically signed by: ? MED Escobar(ASCP) ? Report Date: ??07/18/2011 13:55 End of Report LAKISHA ARROYO 07/08/2011 07/12/2011 Refugio Avina PA-C PATHOLOGY ORDERABLES LAKISHA ARROYO [address] [place] [address] documented in this encounter Visit Diagnoses Not on filedocumented in this encounter
--- OUTSIDE RECORDS SUMMARY | 2024-05-27 17:15 | XMS_ITS | Encounter Summary ---
Author Organization [facility] Address [address] [place] [address] Care Team Providers Care Outfitter Cabin Name Role Phone Christopher Tinoco MD Primary Care Provider [phone] Encounter Details Date Type Department Care Team (Late st Contact Info) Description 12/14/2022 Lab Requisition [facility] Pathology & Laboratory Medicine - Main [address] [address] Hair Perez MD [address] [place] [phone] Encounter for screening for malignant neoplasm of colon Social History Tobacco Use Types Packs/Day Years Used Date Smoking Tobacco: Never Assessed Interpersonal Safety Answer Date Record ed Physically Hurt Never 03/22/2020 Verbally Threaten Not on file 03/22/2020 Sex and Gender Information Value Date Recorded Sex Assigned at Not on file Gender Identity Not on file Sexual Orientation Not on file documented as of this encounter Plan of Treatment Not on file documented as of this encounter Procedures Procedure Name Priority Date/Time Associated Diagnosis Comments SURGICAL PATHOLOGY Today 12/14/2022 13 :31 EDT documented in this encounter Results * SURGICAL PATHOLOGY (12/14/2022 13:31 EDT) Note to Patient The following pathology results have been interpreted by your pathologist and may be available to you before your health provider has had the opportunity to review them. Please allow time for your provider to receive these results and explore management options, if applicable. 12/19/2022 13:22 EDT [facility] Final Diagnosis A. STOMACH, ANTRUM, BIOPSIES: - Antral mucosa with mild chronic gastritis. - Stain for Helicobacter pylori like organisms (H pylori (Rabbit Monoclonal (SP48), Talent)) negative. See comment. B. STOMACH, GASTRIC POLYP, BIOPSY: - Fundic gland polyp. C. GASTROESOPHAGEAL JUNCTION, BIOPSIES: - Squamous and gastric type glandular mucosa with features of reflux. - No intestinal metaplasia or dysplasia. 12/19/2022 13:22 [facility] Diagnosis Comment NOTE: One or more of the reagents used in immunoperoxidase testing in this case may not have been cleared or approved by the U.S. Food and Drug Administration (FDA). The FDA has determined that such clearance or approval is not necessary. These tests are used for clinical purposes. They should not be regarded as investigational or for research. These reagents' performance characteristics have been determined by [facility] and/or by the referring laboratory. The positive and negative controls worked appropriately. If immunoperoxidase staining has been performed on alcohol fixed cytology specimens, which has not been fully validated, the assays should be interpreted with caution and correlated with clinical data. This laboratory is certified under the Clinical Laboratory Improvement Amendments of 1988 (CLIA-88) as qualified to perform high complexity clinical laboratory testing.? 12/19/2022 13:22 [facility] Attestation By the signature below, the attending physician certifies that they have 1) personally conducted a gross and/or microscopic examination of the described specimen(s), and/or personally interpreted the results of laboratory testing of the described specimen(s), and 2) personally rendered or confirmed the above diagnosis. 12/19/2022 13:22 [facility] at 1322 Clinical History Reflux, screening; gastritis, esophagitis, diverticulosis 12/19/2022 13:22 [facility] Gross Description A. Received in formalin labelled with proper patient identification (initials B, D) and antrum biopsy are 2 fragments of doran soft tissue (0.3 x 0.2 x 0.2 cm and 0.5 x 0.3 x 0.2 cm). The specimen is entirely submitted in A1. B. Received in formalin labelled with proper patient identification (initials B, D) and gastric polyp are 2 fragments of doran soft tissue (each averaging 0.2 x 0.3 x 0.2 cm). The specimen is entirely submitted in B1. C. Received in formalin labelled with proper patient identification (initials B, D) and GE junction are 4 fragments of doran soft tissue (ranging from 0.2 cm to 0.3 cm in greatest dimension). The specimen is entirely submitted in C1. JEANNINE GALINDO(ASCP) 12/15/2022 11:45 12/19/2022 13:22 EDT [facility] Performing Lab [facility] 13:22 EDT [facility] Scanned Images 12/19/2022 13:22 EDT [facility] Tissue ENTIRE ESOPHAGUS / Unknown 12/14/2022 13:31 EDT 12/14/2022 22:26 EDT Tissue specimen (specimen) SPECIMEN FROM STOMACH OBTAINED BY TOTAL GASTRECTOMY / Unknown 12/14/2022 13:31 EDT 12/14/2022 22:26 EDT Tissue specimen (specimen) ESOPHAGEAL STRUCTURE / Unknown 12/14/2022 13:31 EDT 12/14/2022 22:26 EDT Hair Perez MD PATHOLOGY ORDERABLES [facility] [address] [place] [address] documented in this encounter Visit Diagnoses Diagnosis Encounter for screening for malignant neoplasm of colon Special screening for malignant neoplasms, colon documented in this encounter Care Teams Outfitter Cabin Relationship Specialty Start Date End Date Christopher Tinoco MD [address] [place] [id number] PCP - General Internal Medicine - Primary Care 11/19/22 documented as of this encounter
--- OUTSIDE RECORDS SUMMARY | 2024-05-27 17:15 | XMS_ITS | Encounter Summary ---
Author Organization [facility] Address [address] [place] [address] Care Team Providers Care Professor Of Art History Name Role Phone Unavailable Primary Care Provider Unavailabl e Encounter Details Date Type Department Care Team (Late st Contact Info) Description 05/18/2001 Results Only [facility] conversion [address] [place] [address] Sal López MD Social History Tobacco Use Types Packs/Day Years Used Date Smoking Tobacco: Never Assessed Sex and Gender Information Value Date Recorded Sex Assigned at Not on file Gender Identity Not on file Sexual Orientation Not on file documented as of this encounter Plan of Treatment Not on file documented as of this encounter Procedures Procedure Name Priority Date/Time Associated Diagnosis Comments CYTOPATHOLOGY Routine 05/18/2001 0:00 EDT documented in this encounter Results * CYTOPATHOLOGY (05/18/2001 0:00 EDT) Pathology Report: CYTOPATHOLOGY REPORT Reports generated via electronic interface contain original data; however they are lacking the format of the original report. Caution should be taken when reading/interpreti ng unformatted reports. Name: ? KALINA ROJAS ? Accession #: ? [id number] : ? 1955 (Age: 45) ??F ?Collect Date: ? 05/18/2001 Location: ? [facility] ? Receive Date: ? 05/21/2001 Provider: ?SAL LÓPEZ MD Copy to: ? Specimen/Source: ?ThinPrep Pap Test, Source Not Provided Last Menstrual Period: ? 04/27/01 ? SPECIMEN ADEQUACY ? Satisfactory for evaluation. GENERAL CATEGORIZATION ? Benign Cellular Changes DESCRIPTIVE DIAGNOSIS ? Fungal organisms present morphologically consistent with Rachel species. ? Document reviewed and electronically signed by: ? MED Escobar(ASCP) ? Report Date: ??05/22/2001 12:57 End of Report [facility] 05/18/2001 05/21/2001 Sal López MD PATHOLOGY ORDERABLES [facility] [address] [place] [address] documented in this encounter Visit Diagnoses Not on filedocumented in this encounter
--- OUTSIDE RECORDS SUMMARY | 2024-05-27 17:15 | XMS_ITS | Encounter Summary ---
Author Organization [facility] Address [address] [place] [address] Care Team Providers Care Envelope Press Operator Name Role Phone Unavailable Primary Care Provider Unavailabl e Encounter Details Date Type Department Care Team (Late st Contact Info) Description 05/13/2005 Results Only [facility] conversion [address] [place] [address] Sal López MD Social History Tobacco Use [...] Priority Date/Time Associated Diagnosis Comments CYTOPATHOLOGY Routine 05/13/2005 0:00 EDT documented in this encounter Results * CYTOPATHOLOGY (05/13/2005 0:00 EDT) Pathology Report: CYTOPATHOLOGY REPORT Reports generated via electronic interface contain original data; however they are lacking the format of the original report. Caution should be taken when reading/interpreti ng unformatted reports. Name: ? KALINA ROJAS ? Accession #: ? [id number] : ? 1955 (Age: 49) ??F ?Collect Date: ? 05/13/2005 Location: ? [facility] ? Receive Date: ? 05/16/2005 Provider: ?SAL LÓPEZ MD Copy to: ? Specimen/Source: ?ThinPrep Pap Test, Cervix/Endocervix, processed on [employer] ThinPrep Imaging System, with manual evaluation Last Menstrual Period: ? Previous Gynecologic Pathology: ? Yes: Pap 04/21 WNL Other: ? HPVA - HPV testing requested if ASC-US on the current ThinPrep Pap test. ? SPECIMEN ADEQUACY ? Satisfactory for Evaluation - transformation zone component present GENERAL CATEGORIZATION ? Negative for Intraepithelial Lesion or Malignancy ? Document reviewed and electronically signed by: ? MED Thompson(ASCP) ? Report Date: ??05/26/2005 07:15 End of Report [facility] 05/13/2005 05/16/2005 Sal López MD PATHOLOGY ORDERABLES [facility] [address] [place] [address] documented in this encounter Visit Diagnoses Not on filedocumented in this encounter
--- OUTSIDE RECORDS SUMMARY | 2024-05-27 17:15 | XMS_ITS | Continuity of Care Document ---
Author Organization [facility] [facility] Address [address] [place] [address] Care Team Providers Care Landscaping Crew Leader Name Role Phone KAROLINAJEFERSON CHARITY Primary Care Provider Assessment No assessment recorded. Plan of Treatment Reminders Order Date Submit Date Provider Last Modified By Organization Details Last Modified Time Details Appointments Acute 30 2023 04:00P M STEPHANIE FOLEY Not available Not available Not available Follow Up 2023 09:30A M CHARITY LEOS Not available Not available Not available Lab None recorded. Referral None recorded. Procedures None recorded. Surgeries None recorded. Imaging None recorded. Medication Orders Augmentin 875 mg-125 mg tablet 2023 024 [facility] [employer] [address], [address] [place], [address], 05/27/2024 15:56:42 albuterol sulfate HFA 90 mcg/actua tion aerosol inhaler 2023 024 [employer] [address], [address] [place], [address], 05/16/2024 16:25:36 Patient TargetsNo targets recorded. Patient InstructionsNo instructions [...] my email to prashant terry Referring Physician: Stehpanie Foley, Internal Medicine, Encounter Date: 04/29/2024 Urogynecologist [...] Organization Detail LastModifiedTime 05/06/20 24 04/22/2021 imagi ng/yaakov jacobs tic resul t No observ ation record [...] IMPRES THOM: No acute intrat horaci c findin gs. Report signed by: Rhonda Leonardo On 2023 11:14: 23 [facility] [address], [place], [address], 05/09/2024 16:56:28 05/09/20 24 05/09/2024 CT abdom en and pelvi s w/ contr ast no po ABNORM AL FINDIN G PROCED URE INFORM ATION: Exam: CT Abdome n And Pelvis With Contra st Exam date and time: 024 11:47 AM Age: 68 years old Clinic [...] Rhonda Leonardo On 2023 12:25: [address] [facility] [address], [place], [address], 05/09/2024 16:56:31 Result Notes None recorded. Problems Name Problem SNOMED Code Status Onset Date Resolution Date Notes Provider Name and Address Organization Details Recorded Time Cholecys tectomy Completed 200311/25/2003 Not Available [facility] 3 05:17:13 Acute sinusiti s 48472907 Completed 201404/19/[address], [place], [address] , [facility] 4 16:03:25 Acute sinusiti s 35099145 Completed 201512/02/2015 Problem Code: J01.90; Problem Code Type: ICD-10; MD Thong [address], [place], [address] , [facility] 4 16:03:25 Increase d frequenc y of urinatio n 614393662 Completed 201511/03/2015 Problem Code: R35.0; Problem Code Type: ICD-10; Not Available [facility] 3 05:17:14 Urinary tract infectio us disease 21701838 Completed 201506/09/2016 Problem Code: N39.0; Problem Code Type: ICD-10; Not Available [facility] 3 05:17:14 Acute sinusiti s 52820421 Completed 201601/04/2017 Problem Code: J01.90; Problem Code Type: ICD-10; MD Thong [address], [facility] [address] , [facility] 4 16:03:25 Hypothyr oidism 16250034 Active 2007 [facility] 4 16:33:26 Irritabl e bowel syndrome 10334884 Active nl colonosc opy [facility] 4 16:33:44 Simple goiter 194740431 Active 2003 [facility] 4 16:35:54 Gastroes ophageal reflux disease without esophagi tis 291661208 Active 201312/14/22 EGD Perez, gastric polyps MD Thong [address], [facility] [address] , [facility] 4 16:14:55 Pain of left shoulder joint 92352398044 155264 Completed 201605/05/2017 Problem Code: M25.512; Problem Code Type: ICD-10; Not Available [facility] 3 05:17:15 Screenin g for malignan t neoplasm of colon Completed 201605/30/2023 Problem Code: Z12.11; Problem Code Type: ICD-10; Removal Reason: 3 neg STEPHANIE FOLEY MD [address], [facility] [address] , [facility] 4 16:14:27 Basal cell carcinom a of face 234778672 Completed 201604/19/[address], [place], [address] , [facility] 4 16:03:33 Breast lump 81791186 Completed 201605/30/2023 Problem Code: N63; Problem Code Type: ICD-10; Not Available [facility] 4 05:37:29 Acute upper respirat ory infectio n 62549310 Completed 201608/15/2017 07/04/20 17 - Comments only - Dheeraj Davila PA-C - Followin g typical progress ion. Given hoarse voice most likely viral etiology . Symptoma tic care follow-u p if not improvin g. Reviewed expected course. Vital signs normal. Normal exam. 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 Amoxicil lizzie. F/U if not improvin g. Problem Code: J01.00; Problem Code Type: ICD-10; Not Available [facility] 3 05:17:15 Periapic al abscess 599628348 Completed 201701/16/2018 12/27/19 18 - Comments only - Rafaela Amaro MATERIALS SCHEDULER - Seen today by Dr. Ortiz (Dental) [...] K04.7; Problem Code Type: ICD-10; Not Available [facility] 3 05:17:15 Screenin g for malignan t neoplasm of breast Completed 201803/13/[address] [facility], [facility] 4 16:35:38 Adult health examinat ion Completed 201803/17/2021 03/17/20 21 - Comments only - Charity Leos MATERIALS SCHEDULER - Annual exam, mammogra m ordered. PAP not due, Yashira will follow up with [employer] for her prolapse d uterus just hasn't made an appointm ent yet. She got the Shingrix at the pharmacy . Declines COVID vaccine today but is consider ing having that done. I encourag ed vaccinat ion. Continue regular exercise . Problem Code: Z00.00; Problem Code Type: ICD-10; Vandanahuyen Birminghameri [facility], [facility] 4 16:29:47 Eczema 87836411 Completed 201912/05/2023 Dermatit s CHARITY LEOS, PRODUCTION MATERIAL HANDLER [address], [place], [address] , [facility] 4 10:53:24 Pain in thoracic spine 372493554 Completed 201905/26/2020 05/24/20 20 - Comments only - Rocío Suarez PA - Prescrip tion for Flexeril at bedtime. Recommen ded ibuprofe n 600 mg 3 times a day with food. Recommen ded heating pad and muscle rub. Problem Code: M54.9; Problem Code Type: ICD-10; Not Available [facility] 3 05:17:16 Uterovag inal prolapse 25121489 Active 2020 [address] [facility], [facility] 4 16:36:03 Osteoart hritis 277283436 [facility] 4 16:33:51 Essentia l hyperten thom 71256324 Active 2021 [facility] Caro [facility] 4 16:32:04 Exposure to communic able disease Completed 202111/23/2021 Exposure to COVID-19 coronavi bennett [facility] 4 16:32:45 Disorder of nasal sinus 8558386 Completed 202205/30/2023 12/02/19 23 - Comments only - Charity Leos MATERIALS SCHEDULER - will try adding Fluticas one to her azelasti ne to see if helps with sx, no sign of infectio n on exam today. Push fluids. RTC INI or feeling worse Not Available [facility] 4 05:37:29 Adult health examinat ion Completed 201612/26/2017 Problem Code: Z00.00; Problem Code Type: ICD-10; [facility] 4 16:29:47 Dysuria 48261436 Completed 201504/19/2024 STEPHANIE FOLEY MD [facility] [address], [place], [address] , [facility] 4 16:03:38 Diarrhea 79205184 Completed 201403/07/2017 Problem Code: R19.7; Problem Code Type: ICD-10; Not Available [facility] 3 05:17:29 Irritabl e bowel syndrome 54022583 Completed 201312/08/2016 [facility] 4 16:33:44 Hyperlip idemia screenin g Completed 201812/22/2020 Problem Code: Z13.220; Problem Code Type: ICD-10; Not Available [facility] 3 05:17:31 Urinary tract infectio us disease 44403806 Completed 201912/22/2020 Problem Code: N39.0; Problem Code Type: ICD-10; Not Available [facility] 3 05:17:31 Goiter 6322903 Completed 200312/08/2016 Not Available [facility] 3 05:17:33 Gastroes ophageal reflux disease 011528615 Completed 201312/08/2016 Not Available [facility] 3 05:17:35 Chronic sinusiti s 14365784 Completed 201512/26/2017 Problem Code: J32.9; Problem Code Type: ICD-10; Not Available [facility] 3 05:17:35 Raynaud' s disease 122542728 Active 2022 Vandana Elizondo [facility], [facility] 4 16:34:00 Seasonal allergy 332620324 Active 2023 FABIANO ESPINOZA [address], [place], [address] , [facility] 4 10:53:35 Cellulit is of right lower limb 80513322934 794851 Active [address], [place], [address] , [facility] 14:17:39 Upper respirat ory infectio n 25176841 Active [address], [place], [address] , [facility] 4 16:00:30 Communit y acquired pneumoni a 871255250 Active [address], [place], [address] , [facility] 4 17:25:36 Third degree uterine prolapse 76510477 Active [address], [place], [address] , [facility] 4 16:49:54 Problem Notes None recorded. Medical Equipment None Reported. Allergies Allergen ID Allergen Name Allergen Category Reaction Reaction Severity Criticality Documentation Date Start Date Code Code System Note Provider Name and Address Organization Details Recorded Time Zithromax medicatio n rash moderate Not available 06/30/20232011 4 [facility] 4 16:37:51 14393 sulfadiaz ine medicatio n other moderate Not available 06/30/20232001 56924 RxNorm No react ion enter ed [facility] 4 16:37:37 15937 Cipro medicatio n insomnia severe Not available 06/30/2023202056 3 RxNorm [facility] 4 16:36:36 42777 codeine medicatio n other moderate Not available 11/27/20232003 2670 RxNorm INTOL N/V [facility] 4 16:37:17 Medications Name Sig Start Date [...] azelastine 137 mcg (0.1 %) nasal spray [place] 1-2 spray into both nostrils once a [...] Available Not Available Not Available amoxicillin 875 mg-adamu m clavulanate 125 mg tablet TAKE ONE [...] Not Available Not Available Not Avai lable [facility] 10 billion cell-200 mg sprinkle [...] Details Last Updated DateTime 4 166.37 cm 23.3 kg/m2 52135.5 2 g 98.1 [degF] 18 /min 96 % 96 % 88 /min 122 mm[Hg] 72 mm[Hg] BERE MEZA LPN [facility] 4 15:57:09 Social History Question Answer Notes LastModified by Organizat ion Details LastModified Time Tobacco Smoking Status Never Smoker BERE MEZA LPN [facility] 12/05/2023 10:36:31 What Is Your Occupation? [...] LastModified Time Mother Family history of Hypertension [email or web address] Not available 05/2023 03:54:45 Mother Family history of hyperthyroid ism [email or web address] Not available 2022 03:54:46 Notes:*Problem: No known fam darline history of CAD, CVA, breast cancer or colon cancer Medical History No medical history recorded. Gynecological HistoryNo gynecological history recorded. Obstetrics History GPAL:G 0 P 0 0 0 0 Immunizations Vaccine Type Date Status Provider Name and Address Organization Details Recorded Time Tdap 05/27/2024 completed STEPHANIE FOLEY MD [facility] [address], [place], [address] 05/27/2024 16:48:00 MMR 03/13/2019 completed Not Available [facility] 06:04:52 Tdap 05/02/2014 completed Not Available [facility] 06:04:52 Influenza, split virus, trivalent, preservative 06/13/2016 completed Not Available [facility] 06/30/2023 06:04:52 Influenza, split virus, quadrivalent, PF 06/24/2018 completed Not Available [facility] 06/30/2023 06:04:52 Influenza, MDCK, trivalent, PF 06/03/2015 completed Not Available [facility] 06/30/2023 06:04:52 influenza, unspecified formulation 06/03/2020 completed Not Available [facility] 06/30/2023 06:04:52 influenza, unspecified formulation 06/20/2019 completed Not Available [facility] 06/30/2023 06:04:53 influenza, unspecified formulation 07/11/2023 completed Duane Martinez RN [facility], [facility] 12/04/2023 14:24:56 Past Encounters Encounter ID Performer Location Encounter Start Date Encounter Closed Date Diagnosis/Indication Diagnosis SNOMED-CT Code Diagnosis ICD10 Code [id number] STEPHANIE FOLEY MD [address] [address] 04/19/2024 15:56:50 04/19/2024 16:38:44 Cellulitis of right lower limb 8337437586 9629621 L03.283 [id number] STEPHANIE FOLEY MD [address] [address] 04/24/2024 13:18:07 04/24/2024 14:35:47 Cellulitis of right lower limb 9025222523 2951783 L03.123 [id number] STEPHANIE FOLEY MD [address] [address] 04/29/2024 14:46:21 04/29/2024 15:27:54 Cellulitis of right lower limb 0157532856 2664683 L03.876 [id number] STEPHANIE FOLEY MD [address] [address] 05/06/2024 14:47:54 05/06/2024 16:40:25 Cellulitis of right lower limb 9072469428 6766160 L03.115 Upper resp iratory infection 37826280 J06.9 [id number] ROCÍO SUAREZ PA-C [address] [address] 05/16/2024 15:49:32 05/16/2024 16:53:23 Cough 70387070 R05.9 Health Concerns Section Related Observation LastModified by Organization Detai ls LastModified Time None Recorded Concern Status LastModified by Organization Details LastModified Time None Recorded Payers Encounter Date Sequence Insurance Name Policy Number Policy Luna Covered Member ID Luna Member ID Guarantor Name 05/16/2024 1 [place] [employer] Yashira Reynaga [id number] Yashira Reynaga 05/16/2024 2 [facility] () Yashira Reynaga [id number] Yashira Reynaga Notes Date Note Type Note Provider Name and Address Organization Details Recorded Time 05/16/2024 text/html HPI Notes: Bren lim consented to the use of [employer] to record and transcribe notes during this visit. The patient presents with a chief complaint of bronchitis, which began last week. She reports having been treated for cellulitis due to a spider bite prior to the onset of her current symptoms. The patient states that she was feeling better until yesterday, when she began to feel like she was regressing. The patient visited the ER on the , approximately eight days ago. - Imaging: Patchy tree-in-bud opacities and bilateral lower lobes with bronchial wall thickening observed. - Labs: Mildly elevated white blood cell count. She reports that her cough began the day before her ER visit and worsened rapidly. She experienced difficulty keeping anything down. The patient denies having fevers but reports experiencing chills and mild sweats. She has been experiencing shortness of breath and has had to sleep propped up on pillows. The patient denies any history of asthma or COPD. The patient occasionally coughs up phlegm but mostly feels it coming up without fully expectorating. She has been taking Mucinex and Tylenol Cold and Sinus over the counter. She describes a sensation of her head feeling like it will pop off when she coughs. The patient reports ear pain this morning but denies having a sore throat. She has been tested for COVID, flu, and RSV, all of which were negative. The patient is a non-smoker. [address], [place], [address], [facility]. 05/16/2024 16:46:48 OBGyn Episode No OBEpisode recorded.
--- OUTSIDE RECORDS SUMMARY | 2024-05-27 17:15 | XMS_ITS | Encounter Summary ---
Author Organization [facility] Address [address] [place] [address] Care Team Providers Care Manager Financial Reporting Name Role Phone Unknown, Provider Primary Care Provider [phone] Encounter Details Date Type Department Care Team (Late st Contact Info) Description 04/12/2017 Results Only [facility] [phone] Dheeraj Davila V, ISAIAH [address] [place], [place] [address] Social History Tobacco Use Types Packs/Day Years Used Date Smoking Tobacco: Never Assessed Sex and Gender Information Value Date Recorded Sex Assigned at Not on file Gender Identity Not on file Sexual Orientation Not on file documented as of this encounter Plan of Treatment Not on file documented as of this encounter Procedures Procedure Name Priority Date/Time Associated Diagnosis Comments SURGICAL PATHOLOGY Routine 04/12/2017 9:12 EDT documented in this encounter Results * SURGICAL PATHOLOGY (04/12/2017 9:12 EDT) Pathology Report: SURGICAL PATHOLOGY REPORT Reports generated via electronic interface contain original data; however they are lacking the format of the original report. Caution should be taken when reading/interpret ing unformatted reports. Name: ? KALINA ROJAS ? Accession #: ? [id number] ? : ? 1955 (Age: 61) ??F ? Collect Date: ? 04/12/2017 ? Location: ? [facility] ? Receive Date: ? 04/13/2017 ? Provider: DHEERAJ DAVILA [facility] Copy to: ? Final Pathologic Diagnosis: A. ??SKIN OF CHEEK, RIGHT, EXCISION: - Basal cell carcinoma, nodular type. ??See comment. - Margins of excision negative, but close. ??- Lesion measures approximately 0.4 mm to the inferior and deep margins. ??- Lesion measures approximately 0.7 mm to the superior margin. ?? B. ??SKIN OF NARES, LEFT, SHAVE BIOPSY: - Basal cell carcinoma, nodular type. - Lesion extends to biopsy edge and base. ?? Comment: Within the primary excision specimen (blocks A1-A3), basal cell carcinoma is identified which measures approximately 0.4 mm to both the peripheral margins and the deep margin. ??Definitive perineural invasion is not identified. Additional superior margin was also submitted within the same specimen container and does not show evidence of basal cell carcinoma. ??The superior margin measurement reflects this additional tissue. ??(Dr. Anaya)/adry Document reviewed and electronically signed by: ASHVIN ANAYA MD Report ??Date: 04/14/2017 15:05 By the signature above, the attending physician certifies that he/she has personally conducted a gross and/or microscopic examination of the described specimens and rendered or confirmed the above diagnosis. Specimen(s) Received: A. ??Right cheek skin lesion with extra superior margin, stitch is marked inferior B. ??Left nares skin lesion Clinical History: Right cheek lesion and left nares lesion Gross Description: A. ?Received in formalin labelled with proper patient identification (initials B, D) and right cheek lesion with extra superior margin is an oriented elliptical excision of doran-pink skin with a suture designating inferior (1.3 cm from left to right, 0.5 cm from superior to inferior, and is excised to a depth of 0.3 cm). The epidermal surface is doran-pink and nodular. The superior aspect is blue inked and the inferior aspect is black inked. The specimen is serially sectioned from right to left. A separate detached piece of tissue is also present within the container (0.7 x 0.3 x 0.1 cm. One aspect appears to be surfaced with skin while the other appears to be surfaced by cauterized margin. The new margin is inked blue and submitted en face. Both specimens are entirely submitted as follows: BLOCK MURRAY A1- ??right tip, reverse en face A2- ??central sections A3- ??left tip, reverse en face ?? A4- ??new superior margin, en face B. ?Received in formalin labelled with proper patient identification (initials B, D) and left nares is a shave biopsy of a doran-pink pearly papule (0.4 x 0.3 x 0.1 cm). Bisected and submitted in B1. Dr. Johnson 04/13/2017 3:25 PM End of Report [facility] 04/12/2017 9:12 EDT 04/13/2017 9:12 EDT ISAIAH Adair PATHOLOGY ORDER JORGE [facility] [address] [place] [address] documented in this encounter Visit Diagnoses Not on filedocumented in this encounter Care Teams Manager Financial Reporting Relationship Specialty Start Date End Date Unknown, Provider, PCP - General 03/16/14 11/18/22 documented as of this encounter
--- OUTSIDE RECORDS SUMMARY | 2024-05-27 17:15 | XMS_ITS | Referral Summary ---
Author Organization [facility] Address [address] [place] [address] Care Team Providers Care Hand Scraper Name Role Phone Christopher Tinoco MD Primary Care Provider Social History Tobacco Use Types Packs/Day Years Used Date Smoking Tobacco: Never Assessed Interpersonal Safety Answer Date Record ed Physically Hurt Never 03/22/2020 Verbally Threaten Not on file 03/22/2020 Sex and Gender Information Value Date Recorded Sex Assigned at Not on file Gender Identity Not on file Sexual Orientation Not on file Plan of Treatment Not on file Yashira Reynaga Personal/Family Self 1955 [address] [facility] [address] [place] [address] Yashira Reynaga Personal/Family Self 1955 [address] [facility] [address] [place] [address] Yashira Reynaga Personal/Family Self 1955 [address] [facility] [address] [place] [address] Yashira Reynaga Personal/Family Self [address] [address] Care Teams Hand Scraper Relationship Specialty Start Date End Date Christopher Tinoco MD [address] [place] [address] PCP - General Internal Medicine - Primary Care 11/19/22
--- OUTSIDE RECORDS SUMMARY | 2024-05-27 17:15 | XMS_ITS | Encounter Summary ---
Author Organization [facility] Address [address] [place] [address] Care Team Providers Care Special Weapons And Tactics Officer Name Role Phone Unknown, Provider Primary Care Provider [phone] Encounter Details Date Type Department Care Team ([facility] Contact Info) Description 02/27/2017 Results Only [facility] [phone] Glenny Sanchez, METAL DOOR ASSEMBLER [address] [place] [address] Social History Tobacco Use Types Packs/Day Years [...] Diagnosis Comments PAP TEST- RESULT ONLY Routine 02/27/2017 0:00 EDT documented in this encounter Results * PAP TEST- RESULT ONLY (02/27/2017 0:00 EDT) Pathology Report: CYTOPATHOLOGY REPORT Reports generated via electronic interface contain original data; however they are lacking the format of the original report. Caution should be taken when reading/interpreti ng unformatted reports. Name: ? KALINA ROJAS ? Accession #: ? [id number] ? : ? 1955 (Age: 61) ??F ?Collect Date: ? 02/27/2017 ? Location: ? [facility] ? Receive Date: ? 02/28/2017 ? Provider: GLENNY SANCHEZ NP Copy to: ? Final Report SPECIMEN ADEQUACY ? Satisfactory for Evaluation - transformation zone component present GENERAL CATEGORIZATION ? Negative for Intraepithelial Lesion or Malignancy ?? Menstrual/Pregnanc y Status: ??Menopausal: Several years ago Specimen/Source: ??Pap Test, Cervix, ThinPrep Imaging System with manual evaluation Document reviewed and electronically signed by: ? MED Escobar(ASCP) ? Report ??Date: 03/08/2017 12:22 HPV with Pap Test ? Date Ordered: ? 03/08/2017 ? Status: ?? Signed Out ?Date Complete: ? 03/09/2017 ? By: ??System Interface ? Date Reported: ? 03/09/2017 ? Interpretation RESULT: Negative for HPV. No E6 or E7 mRNA is detected from HPV types 16,18,31,33,35, 39,45,51,52,56,58, 59,66, and 68 by parking lot attendant and cashier mediated amplification. Comments Document reviewed and electronically signed by: ? System Interface ? Report date: 03/09/2017 By the signature above, the attending physician certifies that he/she has personally conducted a gross and/or microscopic examination of the described specimens and rendered or confirmed the above diagnosis. End of Report [facility] 02/27/2017 02/28/2017 Glenny K Heck METAL DOOR ASSEMBLER PATHOLOGY ORDERABLES [facility] [address] [place] [address] documented in this encounter Visit Diagnoses Not on filedocumented in this encounter Care Teams Special Weapons And Tactics Officer Relationship Specialty Start Date End Date Unknown, Provider, PCP - General 03/16/14 11/18/22 documented as of this encounter
--- OUTSIDE RECORDS SUMMARY | 2024-05-27 17:15 | XMS_ITS | Encounter Summary ---
Author Organization [facility] Address [address] [place] [address] Care Team Providers Care Photo Producer Name Role Phone Unknown, Provider Primary Care Provider Encounter Details Date Type Department Care Team (Latest Contact Info) Description 04/19/2017 15:34 EDT - 04/19/2017 23:59 EDT Hospital Encounter [address] [address] Unknown, Provider, Discharge Disposition: Home or Self Care Social History Tobacco Use Types Packs/Day Years Used Date Smoking Tobacco: Never Assessed Sex and Gender Information Value Date Recorded Sex Assigned at Not on file Gender Identity Not on file Sexual Orientation Not on file documented as of this encounter Discharge Disposition Disposition Code Departure Means Destination Home or Self [facility] documented in this encounter Plan of Treatment Not on file documented as of this encounter Visit Diagnoses Not on filedocumented in this encounter Care Teams Photo Producer Relationship Specialty Start Date End Date Unknown, Provider, PCP - General 03/16/14 11/18/22 documented as of this encounter
--- OUTSIDE RECORDS SUMMARY | 2024-05-27 17:15 | XMS_ITS | Encounter Summary ---
Author Organization [facility] Address [address] [place] [address] Care Team Providers Care Aircraft Metalsmith Name Role Phone Unknown, Provider Primary Care Provider Encounter Details Date Type Department Care Team (Latest Contact Info) Description 04/12/2017 13:57 EDT - 04/12/2017 23:59 EDT Hospital Encounter [address] [address] Unknown, Provider, Discharge Disposition: Home or Self [...] on filedocumented in this encounter Care Teams Aircraft Metalsmith Relationship Specialty Start Date End Date Unknown, Provider, PCP - General 03/16/14 11/18/22 documented as of this encounter
--- OUTSIDE RECORDS SUMMARY | 2024-05-27 17:15 | XMS_ITS | Continuity of Care Document ---
[facility] Address [address] [place] [address] Care Team Providers Care Animal Geneticist Name Role Phone CHARITY LEOS Primary Care [...] by: Rhonda Leonardo On 2023 11:14: 23 [facility] [address], [place], [address], 05/09/2024 16:56:28 05/09/20 24 05/09/2024 CT abdom [...] Rhonda Leonardo On 2023 12:25: 09 INTERFACE [facility] [address], [place], [address], 05/09/2024 16:56:31 Result Notes None recorded. Problems Name Problem SNOMED Code Status Onset Date Resolution Date Notes Provider Name and Address Organization Details Recorded Time Cholecys tectomy Completed 200311/25/2003 Not Available [facility] 3 05:17:13 Acute sinusiti s 97575207 Completed 201404/19/[address], [place], [address] , [facility] 4 16:03:25 Acute sinusiti s 94550626 Completed 201512/02/2015 Problem Code: J01.90; Problem Code Type: ICD-10; MD Thong [address], [place], [address] , [facility] 4 16:03:25 Increase d frequenc y of urinatio n 352059708 Completed 201511/03/2015 Problem Code: R35.0; Problem Code Type: ICD-10; Not Available [facility] 3 05:17:14 Urinary tract infectio us disease 29116126 Completed 201506/09/2016 Problem Code: N39.0; Problem Code Type: ICD-10; Not Available [facility] 3 05:17:14 Acute sinusiti s 98795023 Completed 201601/04/2017 Problem Code: J01.90; Problem Code Type: ICD-10; MD Thong [address], [place], [address] , [facility] 4 16:03:25 Hypothyr oidism 47620481 Active 2007 [facility] 4 16:33:26 Irritabl e bowel syndrome 36803678 Active nl colonosc opy [facility] 4 16:33:44 Simple goiter 948471523 Active 2003 [facility] 4 16:35:54 Gastroes ophageal reflux disease without esophagi tis 068744445 Active 201312/14/22 EGD Perez, gastric polyps MD Thong [address], [facility] [address] , [facility] 4 16:14:55 Pain of left shoulder joint 62087319281 621168 Completed 201605/05/2017 Problem Code: M25.512; Problem Code Type: ICD-10; Not Available [facility] 3 05:17:15 Screenin g for malignan t neoplasm of colon Completed 201605/30/2023 Problem Code: Z12.11; Problem Code Type: ICD-10; Removal Reason: 3 neg MD [address]ong [address], [place], [address] , [facility] 4 16:14:27 Basal cell carcinom a of face 365386918 Completed 201604/19/[address], [place], [address] , [facility] 4 16:03:33 Breast lump 59321773 Completed 201605/30/2023 Problem Code: N63; Problem Code Type: ICD-10; Not Available [facility] 4 05:37:29 Acute upper respirat ory infectio n 60497266 Completed 201608/15/2017 07/04/20 17 - Comments only - Dheeraj Davila PA-C - Followin g typical progress ion. Given hoarse voice most likely viral etiology . Symptoma tic care follow-u p if not improvin g. Reviewed expected course. Vital signs normal. Normal exam. 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 Amoxicil lizzie. F/U if not imprologan g. Problem Code: J01.00; Problem Code Type: ICD-10; Not Available [facility] 3 05:17:15 Periapic al abscess 659746132 Completed 201701/16/2018 12/27/19 18 - Comments only - Rafaela Amaro SHAKE CUTTER - Seen today by Dr. Ortiz (Dental) [...] K04.7; Problem Code Type: ICD-10; Not Available [facility] 3 05:17:15 Screenin g for malignan t neoplasm of breast Completed 201803/13/2019 [facility] 4 16:35:38 Adult health examinat ion Completed 201803/17/2021 03/17/20 21 - Comments only - Charity Leos SHAKE CUTTER - Annual exam, mammogra m ordered. 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 She got the Shingrix at the pharmacy . Declines COVID vaccine today but is consider ing having that done. I encourag ed vaccinat ion. Continue regular exercise . Problem Code: Z00.00; Problem Code Type: ICD-10; [facility] 4 16:29:47 Eczema 19500971 Completed 201912/05/2023 Dermatit s CHARITY LEOS, TRANSIT PLANNING MANAGER [address], [place], [address] , [facility] 4 10:53:24 Pain in thoracic spine 530297615 Completed 201905/26/2020 05/24/20 20 - Comments only - Rocío PAEZ - Prescrip tion for Flexeril at bedtime. Recommen ded ibuprofe n 600 mg 3 times a day with food. Recommen ded heating pad and muscle rub. Problem Code: M54.9; Problem Code Type: ICD-10; Not Available [facility] 3 05:17:16 Uterovag inal prolapse 47052437 Active 2020 [facility] 4 16:36:03 Osteoart hritis 435397218 Active 2020 [facility] 4 16:33:51 Essentia l hyperten thom 52517455 Active 2021 [facility] 4 16:32:04 Exposure to communic able disease Completed 202111/23/2021 Exposure to COVID-19 coronavi bennett [facility] 4 16:32:45 Disorder of nasal sinus 0516367 Completed 202205/30/2023 12/02/19 23 - Comments only - Charity Leos SHAKE CUTTER - will try adding Fluticas one to her azelasti ne to see if helps with sx, no sign of infectio n on exam today. Push fluids. RTC INI or feeling worse Not Available [facility] 4 05:37:29 Adult health examinat ion Completed 201612/26/2017 Problem Code: Z00.00; Problem Code Type: ICD-10; Vandana earl, [facility] 4 16:29:47 Dysuria 91222212 Completed 201504/19/2024 STEPHANIE FOLEY MD [address], [place], [address] [facility] 4 16:03:38 Diarrhea 31918674 Completed 201403/07/2017 Problem Code: R19.7; Problem Code Type: ICD-10; Not Available [facility] 3 05:17:29 Irritabl e bowel syndrome 60810534 Completed 201312/08/2016 Vandana earl, [facility] 4 16:33:44 Hyperlip idemia screenin g Completed 201812/22/2020 Problem Code: Z13.220; Problem Code Type: ICD-10; Not Available [facility] 3 05:17:31 Urinary tract infectio us disease 18881546 Completed 201912/22/2020 Problem Code: N39.0; Problem Code Type: ICD-10; Not Available [facility] 3 05:17:31 Goiter 9424567 Completed 200312/08/2016 Not Available [facility] 3 05:17:33 Gastroes ophageal reflux disease 711493533 Completed 201312/08/2016 Not Available [facility] 3 05:17:35 Chronic sinusiti s 09697839 Completed 201512/26/2017 Problem Code: J32.9; Problem Code Type: ICD-10; Not Available [facility] 3 05:17:35 Raynaud' s disease 814179392 Active 2022 Vandana earl, [facility] 4 16:34:00 Seasonal allergy 153601162 Active 2023 FABIANO ESPINOZA [address], [place], [place], [address] [place] [address] , [facility] 4 10:53:35 Cellulit is of right lower limb 73377649162 462438 Active [address], [place] [address] , [facility] 4 14:17:39 Upper respirat ory infectio n 37033718 Active [address], [place] [address] , [facility] 4 16:00:30 Communit y acquired pneumoni a 323847278 Active [address], [place] [address] , [facility] 4 17:25:36 Third degree uterine prolapse 44659424 Active [address], [place] [address] , [facility] 16:49:54 Problem Notes None recorded. Medical Equipment None Reported. Allergies Allergen ID Allergen Name Allergen Category Reaction Reaction Severity Criticality Documentation Date Start Date Code Code System Note Provider Name and Address Organization Details Recorded Time 07218 Zithromax medicatio n rash moderate Not available 06/30/202320117 4 [facility] 4 16:37:51 37839 sulfadiaz ine medicatio n other moderate Not available 06/30/20232001 12964 RxNorm No react ion enter ed Vandana earl, [facility] 4 16:37:37 64444 Cipro medicatio n insomnia severe Not available 06/30/2023202056 3 RxNorm Vandana [facility] 4 16:36:36 35166 codeine medicatio n other moderate Not available 11/27/20232003 2670 RxNorm INTOL N/V Vandana Eliz[facility] 4 16:37:17 Medications Name Sig Start Date [...] azelastine 137 mcg (0.1 %) nasal spray [place] 1-2 spray into both nostrils once a [...] Not Available Not Available Not Avai lable [facility] 10 billion cell-200 mg sprinkle capsule Take 1capsule by mouth daily 2010 active Not Available Not Available Not Avai lable Vitals Date Recorded Body height Body mass index (BMI) Body weight Oxygen saturation Oxygen saturation in Arterial blood by Pulse oximetry Heart rate Systolic blood pressure Diastolic blood pressure Provider Name and Address Organization Details Last Updated DateTime 4 166.37 cm 23.6 kg/m2 13462.3 1 g 95 % 95 % 96 /min 118 mm[Hg] 60 mm[Hg] Duane Martinez RN [facility] 14:57:25 Social History Question Answer Notes LastModified by Organizat ion Details LastModified Time Tobacco Smoking Status Never Smoker BERE MEZA LPN null, [facility] 12/05/2023 10:36:31 What Is Your [...] 03:54:45 Mother Family history of hyperthyroid ism paulino.70 Not available 2022 03:54:46 Notes:*Problem: No known fam darline history of CAD, CVA, breast cancer or colon cancer Medical History No medical history recorded. Gynecological HistoryNo gynecological history recorded. Obstetrics History GPAL:G 0 P 0 0 0 0 Immunizations Vaccine Type Date Status Provider Name and Address Organization Details Recorded Time Tdap 05/27/2024 completed MD Thong [address], [place], [address], [facility] 05/27/2024 16:48:00 MMR 03/13/2019 completed Not Available [facility] 06:04:52 Tdap 05/02/2014 completed Not Available [facility] 06:04:52 Influenza, split virus, trivalent, preservative 06/13/2016 completed Not Available [facility] 06/30/2023 06:04:52 Influenza, split virus, quadrivalent, PF 06/24/2018 completed Not Available [facility] 06/30/2023 06:04:52 Influenza, MDCK, trivalent, PF 06/03/2015 completed Not Available [facility] 06/30/2023 06:04:52 influenza, unspecified formulation 06/03/2020 completed Not Available [facility] 06/30/2023 06:04:52 influenza, unspecified formulation 06/20/2019 completed Not Available [facility] 06/30/2023 06:04:53 influenza, unspecified formulation 07/11/2023 completed Duane Martinez RN [facility], [facility] 12/04/2023 14:24:56 Past Encounters Encounter ID Performer Location Encounter Start Date Encounter Closed Date Diagnosis/Indication Diagnosis SNOMED-CT Code Diagnosis ICD10 Code [id number] FABIANO ESPINOZA [address] [address] 04/09/2024 13:23:10 04/09/2024 14:19:39 Cellulitis of right lower limb 2561465793 3101410 L03.930 [id number] STEPHANIE FOLEY MD [address] [address] 04/19/2024 15:56:50 04/19/2024 16:38:44 Cellulitis of right lower limb 4375580008 2097230 L03.147 [id number] STEPHANIE FOLEY MD [address] [address] 04/24/2024 13:18:07 04/24/2024 14:35:47 Cellulitis of right lower limb 4865385806 2531931 L03.004 [id number] STEPHANIE FOLEY MD [address] [address] 04/29/2024 14:46:21 04/29/2024 15:27:54 Cellulitis of right lower limb 6664383550 1652589 L03.849 [id number] STEPHANIE FOLEY MD [address] [address] 05/06/2024 14:47:54 05/06/2024 16:40:25 Cellulitis of right lower limb 5542669676 9307104 L03.115 Upper resp iratory infection 12179890 J06.9 Health Concerns Section Related Observation LastModified by Organization Detai ls LastModified Time None Recorded Concern Status LastModified by Organization Details LastModified Time None Recorded Payers Encounter Date Sequence Insurance Name Policy Number Policy Luna Covered Member ID Luna Member ID Guarantor Name 05/06/2024 1 [place] [employer] Yashira Ryenaga [id number] Yashira Reynaga 05/06/2024 2 [facility] () Yashira Reynaga [id number] Yashira Reynaga Notes Date Note Type Note Provider Name and Address Organization Details Recorded Time 05/06/2024 text/html HPI Notes: Follow-up for cellulitis with extensive skin loss over the right calf. Shelly continues to slowly heal, wound slowly shrinking and she is not having significant pain. No bleeding. There is still some discharge. No fever. About a week ago she developed some hoarseness and URI. No fever or severe dyspnea. Starting to improve a little. Was unable to go to her PT appointment because of this illness. MD Thong [address], [place], [address], [facility]. 05/06/2024 16:01:07 OBGyn Episode No OBEpisode recorded.
--- OUTSIDE RECORDS SUMMARY | 2024-05-27 17:15 | XMS_ITS | Clinical Summary ---
Author Organization [facility] Address [address] [place] [address] Care Team Providers Care Secretary Office Clerk Name Role Phone Christopher Tinoco MD Primary [...] Orientation Not on file Plan of Treatment Health Maintenance Due Date Last Done Comments Hepatitis C Screen 1955 RSV Immunization ( o r 60+ Years) (1 - 1-dose 60+ series) 2016 Fall Risk Screening 2021 COVID-19 Vaccine ( season) 2024 Yashira Reynaga Personal/Family Self 1955 [address] [facility] [address] [place] [address] Yashira Reynaga Personal/Family Self [address] [address] Yashira Reynaga Personal/Family Self [address] [address] Care Teams Secretary Office Clerk Relationship Specialty Start Date End Date Christopher Tinoco MD [address] [place] [address] PCP - General Internal Medicine - Primary Care 11/19/22
--- OUTSIDE RECORDS SUMMARY | 2024-05-27 17:15 | XMS_ITS | Encounter Summary ---
Author Organization [facility] Address [address] [place] [address] Care Team Providers Care Lending Advisor Name Role Phone Unknown, Provider Primary Care Provider [phone] Encounter Details Date Type Department Care Team (Late st Contact Info) Description 04/19/2017 Results Only [facility] [phone] Alysia Stevenson MD [address] [place] [address] Social History Tobacco Use Types Packs/Day Years Used Date Smoking Tobacco: Never Assessed Sex and Gender Information Value Date Recorded Sex Assigned at Not on file Gender Identity Not on file Sexual Orientation Not on file documented as of this encounter Plan of Treatment Not on file documented as of this encounter Procedures Procedure Name Priority Date/Time Associated Diagnosis Comments SURGICAL PATHOLOGY Routine 04/19/2017 10 :14 EDT documented in this encounter Results * SURGICAL PATHOLOGY (04/19/2017 10:14 EDT) Pathology Report: SURGICAL PATHOLOGY REPORT Reports generated via electronic interface contain original data; however they are lacking the format of the original report. Caution should be taken when reading/interpret ing unformatted reports. Name: ? KALINA ROJAS ? Accession #: ? [id number] ? : ? 1955 (Age: 61) ??F ? Collect Date: ? 04/19/2017 ? Location: ? [facility] ? Receive Date: ? 04/20/2017 ? Provider: NHI STEVENSON MD Copy to: [facility] ? Final Pathologic Diagnosis: SKIN OF LAW, LEFT, EXCISION: - Basal cell carcinoma, superficial and nodular type. ?? - Margins negative for basal cell carcinoma. ??- Basal cell carcinoma present approximately 0.5 mm from closest (anterior) margin. - Epidermal reparative change and dermal scar, consistent with biopsy site. ?? Microscopic Description: Emanating from the epidermis and present within the dermis are irregularly shaped islands of atypical basal cells. The basal cells have scant cytoplasm and round dark nuclei. ??Mitotic figures and apoptotic bodies are evident. ??The nuclei at the periphery of the islands have a palisaded arrangement. ??The islands are associated with a fibromyxoid stroma and there is cleft formation between some of the islands and stroma. ??(Dr. French)/n Document reviewed and electronically signed by: IAIN FRENCH MD Report ??Date: 04/23/2017 11:48 By the signature above, the attending physician certifies that he/she has personally conducted a gross and/or microscopic examination of the described specimens and rendered or confirmed the above diagnosis. Specimen(s) Received: Reexcision left nare, stitch montes superior Clinical History: Reexcision left nare Gross Description: ? Received in formalin labelled with proper patient identification (initials B, D) and reexcision left nare is an oriented elliptical excision of white skin with a suture designating superior at the 12 o'clock position (1.1 cm from 12 o'clock to 6 o'clock, 0.5 cm from 3 o'clock to 9 o'clock, and is excised to a depth of 0.5 cm). The 3 o'clock aspect is blue inked and the 9 o'clock aspect is black inked. The specimen is serially sectioned from 12 o'clock to 6 o'clock and is entirely submitted as follows: BLOCK MURRAY 1- ??12 o'clock tip, reversed en face 2- ??6 o'clock tip, reversed en face 3- ??two central sections Miismael Blackmon 04/20/2017 11:13 AM End of Report [facility] 04/19/2017 10:1 4 EDT 04/20/2017 10:14 EDT Nhi Stevenson MD PATHOLOGY ORDER JOREG [facility] [address] [place] [address] documented in this encounter Visit Diagnoses Not on filedocumented in this encounter Care Teams Lending Advisor Relationship Specialty Start Date End Date Unknown, Provider, PCP - General 03/16/14 11/18/22 documented as of this encounter
--- OUTSIDE RECORDS SUMMARY | 2024-05-27 17:15 | XMS_ITS | Encounter Summary ---
Author Organization [facility] Address [address] [place] [address] Care Team Providers Care Recreation Programmer Name Role Phone Unknown, Provider Primary Care Provider [phone] Christopher Tinoco MD Primary Care Provider [phone] Encounter Details Date Type Department Care Team (Late st Contact Info) Description 11/24/2021 Lab Requisition [facility] Pathology & Laboratory Medicine - [facility] [address] [place] [address] Outr Resulting Lab, Provider Social History Tobacco Use Types Packs/Day [...] Procedure Name Priority Date/Time Associated Diagnosis Comments ZZCOVID-19 TEST [facility] PCR Today 11/23/2021 9:45 EDT COVID-19 TESTING Routine 11/23/2021 9:45 EDT documented in this encounter Results * COVID-19 TEST [facility] PCR (11/23/2021 9:45 EDT) Swab 11/23/2021 9:45 EDT 11/24/2021 16:42 EDT Provider Outr Resulting Lab MICROBIOLOGY - GENERAL ORDERABLES [facility] [address] [place] [address] * COVID-19 TESTING (11/23/2021 9:45 EDT) COVID-19 rt-PCR Result Negative Negative 11/25/2021 13:12 EDT [facility] Comment: This test has not been FDA cleared or approved. This test has been authorized by FDA under an EUA for use by authorized laboratories. This test has been authorized only for detection of nucleic acid from 2019-nCoV, not for any other viruses or pathogens. This test is only authorized for the duration of the declaration that circumstances exist justifying the authorization of emergency use of in vitro diagnostic tests for detection and/or diagnosis of 2019-nCoV under section 564(b)(1) of Act, 21 U.S.C ?? 360bbb-3(b) (1), unless the authorization is terminated or revoked sooner. Negative results do not preclude 2019-nCoV infection and should not be used as the sole basis for treatment or other patient management decisions. Negative results must be combined with clinical observations, patient history, and epidemiological information. Testing was performed using the nayeli SARS-CoV-2 assay ([employer] on the Nayeli 6800 System Performing Lab Nayeli [address] [facility] Lab 11/25/2021 13:12 EDT [facility] Swab 11/23/2021 9:45 EDT 11/24/2021 16:42 EDT Provider Outr Resulting Lab MICROBIOLOGY - GENERAL ORDERABLES [facility] [address] [place] [address] documented in this encounter Visit Diagnoses Not on filedocumented in this encounter Care Teams Recreation Programmer Relationship Specialty Start Date End Date Unknown, Provider, PCP - General 03/16/14 11/18/22 Christopher Tinoco MD [address] [place] [id number] PCP - General Internal Medicine - Primary Care 11/19/22 documented as of this encounter
== END 2024-05-27 17:13 | disposition home or self-care (01) ==
LOC: NCHCN 17:12
PROVIDERS: PCP Nurse Practitioner Family; Visit Provider Internal Medicine
DX: Z11.51 Encounter for screening for human papillomavirus (HPV) (principal); Z01.419 Encounter for gynecological examination (general) (routine) without abnormal findings
CPT/HCPCS: 88142

== ENCOUNTER 2024-12-03 12:24 | Outpatient (REF) | payer MEDICARE, OTHER, SELFPAY ==
[2024-12-03 19:53] LABS: ALT 24 U/L (14-59); AST 27 U/L (15-37); Albumin 3.8 g/dL (3.4-5.0); Alkaline Phosphatase 61 U/L (46-116); Anion Gap 5.7 mmol/L (3-11); BUN 21 mg/dL (7-18); Bilirubin, Total 0.5 mg/dL (0.2-1.0); CO2 28.3 mmol/L (21.0-32.0); CREATININE 0.9 mg/dL (0.55-1.02); Calcium 9.4 mg/dL (8.5-10.1); Chloride 108 mmol/L (98-107); Estimated GFR 69.64 (mL/min/1.73m2); Glucose 102 mg/dL (74-106); Potassium 4.4 mmol/L (3.5-5.1); Sodium 142 mmol/L (136-145); TSH 1.83 uIU/mL (0.36-3.74); Total Protein 7.8 g/dL (6.4-8.2)
== END 2024-12-03 12:25 | disposition home or self-care (01) ==
LOC: NCHCN 12:24
PROVIDERS: PCP Nurse Practitioner Family; Visit Provider Nurse Practitioner Family
DX: I10 Essential (primary) hypertension (principal); E03.9 Hypothyroidism, unspecified
CPT/HCPCS: 80053; 84443